=== PATIENT | female | born 1980 | race Caucasian/White ===

== ENCOUNTER 2016-11-21 08:30 | Outpatient (CLI) | payer OTHER ==
[2016-11-21 13:28] LABS: BASOPHILS # (AUTO) 0.1 10^3/uL (0.0-0.1); EOSINOPHILS # (AUTO) 0.1 10^3/uL (0.0-0.7); EOSINOPHILS % (AUTO) 1.6 %; HCT - HEMATOCRIT 42.1 % (37.0-47.0); HGB - HEMOGLOBIN 13.7 g/dL (12.0-16.0); LYMPHOCYTES % (AUTO) 21.3 %; MEAN CORPUSCULAR HEMOGLOBIN 28.3 pg (27.0-31.0); MEAN CORPUSCULAR HGB CONC 32.5 g/dL (32.0-36.0); MEAN CORPUSCULAR VOLUME 87.2 fL (81.0-99.0); MEAN PLATELET VOLUME 8.4 fL (7.9-10.8); MONOCYTES # (AUTO) 0.6 10^3/uL (0.0-1.0); MONOCYTES % (AUTO) 6.9 %; NEUTROPHILS # (AUTO) 6.5 10^3/uL (1.5-6.6); NEUTROPHILS % (AUTO) 69.2 %; RED BLOOD COUNT 4.83 10^6/uL (4.20-5.40); RED CELL DISTRIBUTION WIDTH 14.1 % (12.0-15.0); UNCORRECTED WHITE BLOOD COUNT 9.3 x10^3/uL; WHITE BLOOD COUNT 9.3 x10^3/uL (4.8-10.8)
[2016-11-21 13:31] LABS: ALBUMIN/GLOBULIN RATIO 1.5 (1.0-2.2); BILIRUBIN,TOTAL 0.6 mg/dL (0.2-1.0); BUN - BLOOD UREA NITROGEN 17 mg/dL (6-20); CALCIUM 9.1 mg/dL (8.5-10.3); CARBON DIOXIDE - CO2 28 mmol/L (21-32); CHLORIDE 104 mmol/L (101-111); CHOL/HDL RATIO 2.9 (<4.4); CHOLESTEROL 174 mg/dL; CREATININE 0.5 mg/dL (0.4-1.0); GFR - MDRD 139 (>89); GLUCOSE 76 mg/dL (70-100); HDL CHOLESTEROL 61 mg/dL; LDL/HDL RATIO 1.6 (<4.4); POTASSIUM 3.9 mmol/L (3.5-5.0); SODIUM 141 mmol/L (135-145); TOTAL PROTEIN 6.9 g/dL (6.7-8.2); TRIGLYCERIDES 82 mg/dL; VLDL CHOLESTEROL 16 mg/dL
[2016-11-21 13:41] LABS: FERRITIN 18.9 ng/mL (11.0-306.8)
[2016-11-21 13:47] LABS: FOLATE 14.16 ng/mL (5.90 - >24.8)
[2016-11-21 13:54] LABS: THYROID STIMULATING HORMONE 0.2 uIU/mL (0.34-5.60)
== END 2016-11-21 08:31 | disposition home or self-care (01) ==
LOC: LAB.WCP 08:30
PROVIDERS: ATTEND Physician Assistant Medical
DX: R79.9 Abnormal finding of blood chemistry, unspecified (principal); Z79.899 Other long term (current) drug therapy; E03.9 Hypothyroidism, unspecified; E66.01 Morbid (severe) obesity due to excess calories; E53.8 Deficiency of other specified B group vitamins; R53.83 Other fatigue
CPT/HCPCS: 36415; 80053; 80061; 82607; 82728; 82746; 84439; 84443; 85025

== ENCOUNTER 2016-12-10 07:17 | Outpatient (CLI) | payer OTHER | END 2016-12-10 07:18 | disposition home or self-care (01) | LOC: LAB.WCP 07:17 | PROVIDERS: ATTEND Physician Assistant Medical | DX: J01.90 Acute sinusitis, unspecified (principal) | CPT/HCPCS: 87640 ==

== ENCOUNTER 2017-01-07 09:08 | Outpatient (CLI) | payer OTHER | END 2017-01-07 09:09 | disposition home or self-care (01) | LOC: SC 09:08 | PROVIDERS: ATTEND Internal Medicine Pulmonary Disease | DX: G47.33 Obstructive sleep apnea (adult) (pediatric) (principal) | CPT/HCPCS: 99203; 99212 ==

== ENCOUNTER 2017-03-14 14:00 | Outpatient (CLI) | payer OTHER | END 2017-03-14 14:01 | disposition home or self-care (01) | LOC: LAB.WCP 14:00 | PROVIDERS: ATTEND Physician Assistant Medical | DX: Z20.2 Contact with and (suspected) exposure to infections with a predominantly sexual mode of transmission (principal) | CPT/HCPCS: 87491; 87591 ==

== ENCOUNTER 2017-03-14 14:13 | Outpatient (CLI) | payer OTHER | END 2017-03-14 14:14 | disposition home or self-care (01) | LOC: LAB.WCP 14:13 | PROVIDERS: ATTEND Physician Assistant Medical | DX: Z20.2 Contact with and (suspected) exposure to infections with a predominantly sexual mode of transmission (principal) | CPT/HCPCS: 36415; 87389 ==

== ENCOUNTER 2017-03-14 14:13 | Outpatient (CLI) | payer OTHER ==
[2017-03-16 12:01] LABS: TREPONEMA AB IGG NEGATIVE
[2017-03-16 21:01] LABS: TEST RESULT REPORT
== END 2017-03-14 14:14 | disposition home or self-care (01) ==
LOC: LAB.WCP 14:13
PROVIDERS: ATTEND Physician Assistant Medical
DX: Z20.2 Contact with and (suspected) exposure to infections with a predominantly sexual mode of transmission (principal)
CPT/HCPCS: 36415; 81599; 86695; 86696; 86780; 87389; 87491; 87591

== ENCOUNTER 2017-06-21 08:00 | Outpatient (CLI) | payer OTHER ==
[2017-06-21 21:03] LABS: ALBUMIN/GLOBULIN RATIO 1.3 (1.0-2.2); ALKALINE PHOSPHATASE 50 IU/L (42-121); ALT ALANINE AMINOTRANSFERASE 33 IU/L (10-60); AST ASPARTATE AMINOTRANSFERASE 19 IU/L (10-42); BILIRUBIN,TOTAL 0.3 mg/dL (0.2-1.0); BUN - BLOOD UREA NITROGEN 19 mg/dL (6-20); CALCIUM 8.9 mg/dL (8.5-10.3); CARBON DIOXIDE - CO2 27 mmol/L (21-32); CHLORIDE 104 mmol/L (101-111); CREATININE 0.7 mg/dL (0.4-1.0); GFR - MDRD 94 (>89); GLUCOSE 85 mg/dL (70-100); SODIUM 140 mmol/L (135-145); TOTAL PROTEIN 7.2 g/dL (6.7-8.2)
[2017-06-21 21:08] LABS: BASOPHILS # (AUTO) 0.1 10^3/uL (0.0-0.1); BASOPHILS % (AUTO) 0.8 %; EOSINOPHILS # (AUTO) 0.1 10^3/uL (0.0-0.7); EOSINOPHILS % (AUTO) 1.1 %; HGB - HEMOGLOBIN 13.2 g/dL (12.0-16.0); LYMPHOCYTES # (AUTO) 2.8 10^3/uL (1.5-3.5); LYMPHOCYTES % (AUTO) 22.5 %; MEAN CORPUSCULAR HEMOGLOBIN 27.7 pg (27.0-31.0); MEAN CORPUSCULAR HGB CONC 32.1 g/dL (32.0-36.0); MEAN CORPUSCULAR VOLUME 86.4 fL (81.0-99.0); MEAN PLATELET VOLUME 8.6 fL (7.9-10.8); MONOCYTES # (AUTO) 0.7 10^3/uL (0.0-1.0); MONOCYTES % (AUTO) 5.5 %; NEUTROPHILS # (AUTO) 8.7 10^3/uL (1.5-6.6); NEUTROPHILS % (AUTO) 70.1 %; PLT - PLATELET COUNT 328 10^3/uL (130-450); RED BLOOD COUNT 4.75 10^6/uL (4.20-5.40); RED CELL DISTRIBUTION WIDTH 16.3 % (12.0-15.0); WHITE BLOOD COUNT 12.4 x10^3/uL (4.8-10.8)
[2017-06-21 21:28] LABS: THYROID STIMULATING HORMONE 0.22 uIU/mL (0.34-5.60)
[2017-06-21 22:38] LABS: FREE T4 (FREE THYROXINE) 1.22 ng/dL (0.58-1.64)
== END 2017-06-21 08:01 | disposition home or self-care (01) ==
LOC: LAB.WCP 08:00
PROVIDERS: ATTEND Physician Assistant Medical
DX: R53.83 Other fatigue (principal)
CPT/HCPCS: 36415; 80053; 84439; 84443; 85025; 86665

== ENCOUNTER 2017-06-25 17:19 | Outpatient (CLI) | payer OTHER ==
[2017-06-25 17:37] LABS: HGB - HEMOGLOBIN 13.6 g/dL (12.0-16.0); MEAN CORPUSCULAR HEMOGLOBIN 27.6 pg (27.0-31.0); MEAN CORPUSCULAR VOLUME 86.4 fL (81.0-99.0); MEAN PLATELET VOLUME 7.7 fL (7.9-10.8); RED BLOOD COUNT 4.91 10^6/uL (4.20-5.40); RED CELL DISTRIBUTION WIDTH 16.2 % (12.0-15.0); WHITE BLOOD COUNT 10.4 x10^3/uL (4.8-10.8)
== END 2017-06-25 17:20 | disposition home or self-care (01) ==
LOC: LAB 17:19
PROVIDERS: ATTEND Physician Assistant Medical
DX: J06.9 Acute upper respiratory infection, unspecified (principal)
CPT/HCPCS: 36415; 85379

== ENCOUNTER 2017-07-02 12:17 | Outpatient (CLI) | payer OTHER | END 2017-07-02 12:18 | disposition home or self-care (01) | LOC: LAB.WCP 12:17 | PROVIDERS: ATTEND Physician Assistant Medical | DX: R31.9 Hematuria, unspecified (principal) | CPT/HCPCS: 87086 ==

== ENCOUNTER 2017-07-11 09:34 | Outpatient (CLI) | payer OTHER ==
[2017-07-11 10:21] LABS: BASOPHILS # (AUTO) 0.1 10^3/uL (0.0-0.1); BASOPHILS % (AUTO) 0.9 %; EOSINOPHILS # (AUTO) 0.3 10^3/uL (0.0-0.7); EOSINOPHILS % (AUTO) 2.1 %; HGB - HEMOGLOBIN 13.7 g/dL (12.0-16.0); LYMPHOCYTES # (AUTO) 4.1 10^3/uL (1.5-3.5); LYMPHOCYTES % (AUTO) 30.1 %; MEAN CORPUSCULAR HEMOGLOBIN 28.2 pg (27.0-31.0); MEAN CORPUSCULAR HGB CONC 32.7 g/dL (32.0-36.0); MEAN CORPUSCULAR VOLUME 86.1 fL (81.0-99.0); MEAN PLATELET VOLUME 7.6 fL (7.9-10.8); MONOCYTES # (AUTO) 0.9 10^3/uL (0.0-1.0); MONOCYTES % (AUTO) 6.7 %; NEUTROPHILS # (AUTO) 8.1 10^3/uL (1.5-6.6); NEUTROPHILS % (AUTO) 60.2 %; PLT - PLATELET COUNT 312 10^3/uL (130-450); RED BLOOD COUNT 4.85 10^6/uL (4.20-5.40); RED CELL DISTRIBUTION WIDTH 16.5 % (12.0-15.0); WHITE BLOOD COUNT 13.5 x10^3/uL (4.8-10.8)
[2017-07-11 10:24] LABS: GLUCOSE, URINE (UA) NEGATIVE (NEGATIVE); KETONES,URINE (UA) NEGATIVE (NEGATIVE); LEUKOCYTE ESTERASE, URINE NEGATIVE (NEGATIVE); NITRITE,URINE NEGATIVE (NEGATIVE); OCCULT BLOOD,URINE TRACE-LYSE (NEGATIVE); PROTEIN,URINE NEGATIVE (NEGATIVE); UROBILINOGEN,URINE 0.2 (NORMAL) E.U./dL (NORMAL)
[2017-07-11 10:36] LABS: ALBUMIN/GLOBULIN RATIO 1.3 (1.0-2.2); BILIRUBIN,TOTAL 0.3 mg/dL (0.2-1.0); CALCIUM 8.9 mg/dL (8.5-10.3); CREATININE 0.9 mg/dL (0.4-1.0)
[2017-07-11 10:56] LABS: BACTERIA,URINE Moderate /HPF (None Seen); BILIRUBIN,URINE NEGATIVE (NEGATIVE); CLARITY,URINE CLEAR (CLEAR); ICTOTEST,URINE NEGATIVE; MUCUS,URINE Marked Strands; RBC,URINE 0-5 /HPF (0-5); SQUAMOUS EPITHELIAL CELL,UR FEW Squamous (<= Few)
[2017-07-13 18:56] LABS: 18 KD (IGG) BAND NON-REACTIVE; 23 KD (IGG) BAND NON-REACTIVE; 23 KD (IGM) BLOT NON-REACTIVE; 28 KD (IGG) BAND NON-REACTIVE; 30 KD (IGG) BAND REACTIVE; 39 KD (IGG) BAND NON-REACTIVE; 39 KD (IGM) BLOT NON-REACTIVE; 41 KD (IGG) BAND REACTIVE; 41 KD (IGM) BLOT REACTIVE; 45 KD (IGG) BAND NON-REACTIVE; 58 KD (IGG) BAND REACTIVE; 66 KD (IGG) BAND REACTIVE; 93 KD (IGG) BAND REACTIVE
[2017-07-15 16:11] LABS: METHYLMALONIC ACID 321 nmol/L (87-318)
== END 2017-07-11 09:35 | disposition home or self-care (01) ==
LOC: LAB 09:34
PROVIDERS: ATTEND Physician Assistant Medical
DX: R53.83 Other fatigue (principal); R50.9 Fever, unspecified; R31.9 Hematuria, unspecified
CPT/HCPCS: 36415; 80053; 81001; 81599; 82306; 82607; 83921; 83970; 85025; 85651; 86376; 86617; 86635; 86666; 86757; 87040; 87086

== ENCOUNTER 2017-07-16 11:56 | Outpatient (CLI) | payer OTHER ==
[2017-07-18 18:07] LABS: 18 KD (IGG) BAND NON-REACTIVE; 23 KD (IGG) BAND NON-REACTIVE; 23 KD (IGM) BLOT NON-REACTIVE; 28 KD (IGG) BAND NON-REACTIVE; 30 KD (IGG) BAND REACTIVE; 39 KD (IGG) BAND NON-REACTIVE; 39 KD (IGM) BLOT NON-REACTIVE; 41 KD (IGG) BAND REACTIVE; 41 KD (IGM) BLOT REACTIVE; 45 KD (IGG) BAND NON-REACTIVE; 58 KD (IGG) BAND NON-REACTIVE; 66 KD (IGG) BAND REACTIVE; 93 KD (IGG) BAND REACTIVE
== END 2017-07-16 11:57 | disposition home or self-care (01) ==
LOC: LAB.WCP 11:56
PROVIDERS: ATTEND Physician Assistant Medical
DX: R29.90 Unspecified symptoms and signs involving the nervous system (principal); A69.20 Lyme disease, unspecified
CPT/HCPCS: 36415; 81599; 86592; 86617

== ENCOUNTER 2017-07-17 12:28 | Outpatient (CLI) | payer OTHER ==
[~2017-07-17 12:28] MED LIST: GADOBUTROL 10 MMOL/10 ML VIAL ONE
[2017-07-17] MEDS ORDERED: GADOBUTROL 10 MMOL/10 ML VIAL IVP ONE (14:49)
--- NOTE | 2017-07-17 15:21 | MRI Preliminary Report ---
Exam: MRI BRAIN W/WO impression: 1. A small T2 hyperintense focus is identified in the right frontal white matter as described. The et iology is uncertain. Differential diagnostic considerations would include virtually the entire gamut white matter disease. However, the clinical significance is doubtful. 2. There is a roughly 3 x 5 x 4 mm, nonenhancing lesion in the posterior aspect of the pituitary as d escribed. This certainly could represent a pituitary microadenoma. Recommend clinical correlation for possible endocrinopathy. 3. Imaging of the brain is otherwise unremarkable. No evidence of infarction, hemorrhage, space-occup tashia mass lesion or other significant intracranial abnormality. SITE ID: [id number]
--- NOTE | 2017-07-17 16:28 | MRI Report ---
MRI BRAIN WITHOUT AND WITH CONTRAST INDICATION: 36-year-old female with history of Lyme disease for unknown number of years. The patient has decreased concentration, decreased sensation in left side of body and some left leg limp. Please assess. TECHNIQUE: 1. T1 sagittal. 2. Coronal fat saturated T2. 3. Axial T1 MP RAGE, FLAIR, T2, T2*and DWI. 4. 10 mL IV Gadavist. T1 3-D axial sequence with sagittal and coronal reformations. COMPARISON: None. FINDINGS: The patient had difficulty holding still for this examination. There is some image degradation second destiney to patient motion. Ventricular size is normal. A roughly 2 mm diameter, rounded T2 hyperintense focus is identified, in the subcortical white matter of the mesial, anterior right frontal lobe. Signal intensity of cortex and white matter is otherwise normal. Flow voids are demonstrated in the main intracranial arteries. No abnormal diffusion restriction is d emonstrated. No evidence of acute or chronic hemorrhage on T2*GRE sequence. No enhancing space-occupying mass lesion is demonstrated. No pathologic meningeal or cranial nerve en hancement is identified. There is normal intravascular contrast enhancement in the dural venous sinus es and deep venous structures. A detailed study of the pituitary gland has not been performed. The sella is not abnormally enlarged. The pituitary gland is prominent and demonstrates central upward convexity. It measures up to about 8 mm in maximal height. These findings are considered within normal limits for a female patient of ch ildbearing age. There is a focal area of non-enhancement in the posterior aspect of the pituitary, pr obably just anterior to the neurohypophysis. It measures close to 3 mm maximal AP by 5 mm maximal tra nsverse by close to 4 mm maximal craniocaudad. No corresponding T2 hyperintensity is demonstrated, to suggest this represents an intrapituitary cyst. This certainly could represent a microadenoma. The p ituitary is otherwise unremarkable. No suprasellar mass is demonstrated. The optic chiasm is normal a nd noncompressed. Limited evaluation of the orbits reveals no gross pathology. Mucosal thickening is identified scattered throughout the ethmoid air cells and in the left chamber o f the sphenoid sinus. The paranasal sinuses are otherwise clear. No mastoid or middle ear effusion is demonstrated. The marrow signal intensity in the regional skeletal structures is unremarkable. Noted is mild prominence of the posterior nasopharyngeal soft tissues, consistent with benign adenoid al hyperplasia. IMPRESSION: 1. A small T2 hyperintense focus is identified in the right frontal white matter as described. The et iology is uncertain. Differential diagnostic considerations would include virtually the entire gamut of white matter disease. However, the clinical significance is doubtful. 2. There is a roughly 3 x 5 x 4 mm, nonenhancing lesion in the posterior aspect of the pituitary as d escribed. This certainly could represent a pituitary microadenoma. Recommend clinical correlation for possible endocrinopathy. 3. Imaging of the brain is otherwise unremarkable. No evidence of infarction, hemorrhage, space-occup tashia mass lesion or other significant intracranial abnormality. Referring Provider Line: [phone] SITE ID: [id number]
== END 2017-07-17 12:29 | disposition home or self-care (01) ==
LOC: DI 12:28
PROVIDERS: ATTEND Physician Assistant Medical
DX: R29.90 Unspecified symptoms and signs involving the nervous system (principal); E23.6 Other disorders of pituitary gland
CPT/HCPCS: 70553; A9585

== ENCOUNTER 2017-07-24 11:20 | Outpatient (CLI) | payer OTHER ==
[2017-07-24 18:53] LABS: BASOPHILS # (AUTO) 0.1 10^3/uL (0.0-0.1); BASOPHILS % (AUTO) 0.8 %; EOSINOPHILS # (AUTO) 0.1 10^3/uL (0.0-0.7); EOSINOPHILS % (AUTO) 1.2 %; HGB - HEMOGLOBIN 12.8 g/dL (12.0-16.0); LYMPHOCYTES # (AUTO) 2.8 10^3/uL (1.5-3.5); LYMPHOCYTES % (AUTO) 26.3 %; MEAN CORPUSCULAR HEMOGLOBIN 27.7 pg (27.0-31.0); MEAN CORPUSCULAR HGB CONC 31.7 g/dL (32.0-36.0); MEAN CORPUSCULAR VOLUME 87.4 fL (81.0-99.0); MONOCYTES # (AUTO) 0.6 10^3/uL (0.0-1.0); MONOCYTES % (AUTO) 6.1 %; NEUTROPHILS # (AUTO) 6.9 10^3/uL (1.5-6.6); NEUTROPHILS % (AUTO) 65.6 %; PLT - PLATELET COUNT 318 10^3/uL (130-450); RED BLOOD COUNT 4.63 10^6/uL (4.20-5.40); RED CELL DISTRIBUTION WIDTH 16.3 % (12.0-15.0); WHITE BLOOD COUNT 10.5 x10^3/uL (4.8-10.8)
[2017-07-24 19:07] LABS: INR 0.9 (0.8-1.2); PT - PROTHROMBIN TIME 10.2 secs (9.9-12.6)
== END 2017-07-24 11:21 | disposition home or self-care (01) ==
LOC: LAB.WCP 11:20
PROVIDERS: ATTEND Physician Assistant Medical
DX: R20.9 Unspecified disturbances of skin sensation (principal)
CPT/HCPCS: 36415; 85025; 85610; 85730

== ENCOUNTER 2017-07-29 11:04 | Emergency (ER) | payer OTHER ==
--- NOTE | 2017-07-29 12:23 | ED Physician Documentation ---
PD HPI HEADACHE - Stated complaint Stated Complaint: HEADACHE W/FEVER - Chief complaint Chief Complaint: Neuro - History obtained from History obtained from: Patient - History of Present Illness Timing - onset: How many days ago (4) Timing - duration: Days (4) Timing - details: Abrupt onset (she had LP 4 days ago in evaluation of possible Lyme disease, and developed headache later in the day, worse the foloowing day and is persistent. Severe when sits up or stands. Not having light sensitive or noise problems such as when she gets migraines. No neck stiffness. [place] chilled/ sweaty couple of times but not fever per se.) Worst headache ever?: Worst headache ever? Location: Global Quality: Throbbing, Like head is exploding (when she sits or stands) Associated symptoms: Nausea. No: Fever, Stiff neck, Weakness, Numbness, Eye pain, Vision changes Improved by: Rest. No: Dark room, Quiet, Meds Worsened by: No: Light, Noise Contributing factors: Other (LP done 4 days ago). No: Recent illness, Trauma Similar symptoms before: Has not had sx before (has had migraines in the past, severe at times, but says character of this is different.) Recently seen: Clinic (LP done for testing of Lme disease with various musculoskeletal and nuerologic symptoms recently. Had LP and developed headache Saturday which has worsened and persisted.) Review of Systems Constitutional: reports: Myalgias (for 2-3 months, promptly eval for infections/ rheumatologic issues. Had Dx of Lyme by blood tests.). denies: Fever, Chills Nose: denies: Rhinorrhea / runny nose, Congestion Throat: denies: Sore throat Cardiac: denies: Chest pain / pressure Respiratory: denies: Dyspnea, Cough GI: reports: Nausea, Vomiting. denies: Abdominal Pain, Diarrhea : denies: Dysuria, Frequency Skin: denies: Rash, Lesions Musculoskeletal: reports: Back pain (mild sore at LP site for few days). denies : Neck pain Neurologic: reports: Generalized weakness. denies: Focal weakness, Numbness, Syncope, Altered mental status PD PAST MEDICAL HISTORY - Past Medical History Cardiovascular: None Respiratory: None Endocrine/Autoimmune: None Other Past Medical History: Lymes Disease - Past Surgical History Past Surgical History: Yes General: Cholecystectomy - Present Medications Home Medications: Ambulatory Orders Medication Instructions Recorded Confirmed Levothyroxine [Synthroid] 200 mcg PO DAILY 04/13/15 04/13/15 Promethazine [Phenergan] 25 - 50 mg PO Q6H PRN #15 tab 09/29/15 Butalb/Acetaminophen/Caffeine 1 each PO Q6H PRN #20 capsule 07/29/17 [Fioricet 50-300-40 mg Capsule] Dexamethasone [Decadron] 4 mg PO DAILY #5 tablet 07/29/17 HYDROcod/ACETAM 5/325 [[place] 5/325] 1 tab PO Q6H PRN #15 tablet 07/29/17 Promethazine [Phenergan] 25 - 50 mg PO Q6H PRN #30 tab 07/29/17 - Allergies Allergies/Adverse Reactions: Allergies Allergy/AdvReac Type Severity Reaction Status Date / Time ondansetron Allergy Emesis Verified 09/29/15 16:52 - Social History Does the pt smoke?: Yes Smoking Status: Current every day smoker Does the pt drink ETOH?: No Does the pt have substance abuse?: No - Immunizations Immunizations are current?: Yes PD ED PE NORMAL - Vitals Vital signs reviewed: Yes - General General: Alert and oriented X 3, Well developed/nourished, Other (appears uncomfortable with headache. ) - HEENT HEENT: Atraumatic, PERRL, EOMI, Ears normal, Pharynx benign - Neck Neck: Supple, no meningeal sign, No bony TTP, No adenopathy - Cardiac Cardiac: RRR, No murmur - Respiratory Respiratory: Clear bilaterally - Abdomen Abdomen: Soft, Non tender - Derm Derm: Normal color, Warm and dry, No rash, Other (LP site low back without any redness, swelling, warmth. ) - Extremities Extremities: No tenderness to palpate, Normal ROM s pain - Neuro Neuro: Alert and oriented X 3, No motor deficit, No sensory deficit, Normal speech Results - Vitals Vitals: Vital Signs - 24 hr 07/29/17 07/29/17 07/29/17 11:21 13:05 14:01 Temperature 36.4 C L 37.1 C Heart Rate 64 55 L 51 L Respiratory 20 16 18 Rate Blood Pressure 116/69 114/66 115/65 O2 Saturation 100 100 100 Oxygen O2 Source Room air - Labs Labs: Laboratory Tests 07/29/17 07/29/17 12:00 12:00 WBC 8.4 RBC 4.51 Hgb 12.7 Hct 38.7 MCV 85.9 MCH 28.3 MCHC 32.9 RDW 15.5 H Plt Count 281 MPV 7.7 L Neut # 5.4 Lymph # 2.2 [place] # 0.6 Eos # 0.1 Baso # 0.1 Absolute Nucleated RBC 0.01 Nucleated RBC % 0.1 Sodium 140 Potassium 4.0 Chloride 107 Carbon Dioxide 28 Anion Gap 5.0 L BUN 17 Creatinine 0.7 Estimated GFR (MDRD) 94 Glucose 75 Calcium 8.7 Total Bilirubin 0.3 AST 19 ALT 19 Alkaline Phosphatase 48 Total Protein 7.0 Albumin 3.7 Globulin 3.3 Albumin/Globulin Ratio 1.1 Lipase 19 L PD MEDICAL DECISION MAKING - ED course Complexity details: re-evaluated patient (improved with IV fluids and meds. Does not seem meningitic and LP site without redness. ), considered differential (no fever here and not really one over past few days. She felt sweaty at times per patient. Having post LP headache mainly along with likely mgiraine as well. ), d/w patient Departure - Departure Disposition: 01 Home, Self Care Clinical Impression: Post lumbar puncture headache Condition: Stable Record reviewed to determine appropriate education?: Yes Instructions: ED Cephalgia Unspecified Follow-Up: Raysa Jones PA-C [Primary Care Provider] - Prescriptions: Butalb/Acetaminophen/Caffeine [Fioricet 50-300-40 mg Capsule] 1 each PO Q6H PRN #20 capsule PRN Reason: Headache Dexamethasone [Decadron] 4 mg PO DAILY #5 tablet HYDROcod/ACETAM 5/325 [[place] 5/325] 1 tab PO Q6H PRN #15 tablet PRN Reason: Pain Promethazine [Phenergan] 25 - 50 mg PO Q6H PRN #30 tab PRN Reason: Nausea / Vomiting Comments: Drink lots of fluids. Light activity today and tomorrow. Use promethazine every 6 hours if needed for any persistent nausea. This could also be used in conjunction with ibuprofen or Tylenol for migraine headache as well. For subsequent migraines, you could use promethazine with Fioricet as a migraine combination and add hydrocodone if needed without relief from those. Follow-up with your primary care regarding ongoing evaluation of your musculoskeletal and neurologic symptoms. Decadron for 5 more days to help keep the current headache tapering down. Discharge Date/Time: 07/29/17 15:47
[2017-07-29] MEDS ORDERED: SODIUM CHLORIDE 0.9% 1,000 ML IV ONE ×3 (12:45→13:56)
[2017-07-29] MEDS ORDERED: DEXAMETHASONE 10 MG/ML VIAL IVP STA (12:45)
[2017-07-29] MEDS ORDERED: METOCLOPRAMIDE 10 MG/2 ML VIAL IVP STA ×2 (12:45→13:57)
[2017-07-29] MEDS ORDERED: KETOROLAC 60 MG/2 ML VIAL IVP STA (12:45)
[2017-07-29] MEDS ORDERED: diphenhydrAMINE INJ 50 MG/ML VIAL IVP STA (12:45)
[2017-07-29] MEDS ORDERED: HYDROmorphone 1 MG/ML SYRINGE IVP STA ×2 (12:45→13:56)
[2017-07-29 13:09] LABS: BASOPHILS # (AUTO) 0.1 10^3/uL (0.0-0.1); BASOPHILS % (AUTO) 0.7 %; EOSINOPHILS # (AUTO) 0.1 10^3/uL (0.0-0.7); EOSINOPHILS % (AUTO) 1.5 %; HGB - HEMOGLOBIN 12.7 g/dL (12.0-16.0); LYMPHOCYTES # (AUTO) 2.2 10^3/uL (1.5-3.5); LYMPHOCYTES % (AUTO) 26.2 %; MEAN CORPUSCULAR HEMOGLOBIN 28.3 pg (27.0-31.0); MEAN CORPUSCULAR HGB CONC 32.9 g/dL (32.0-36.0); MEAN CORPUSCULAR VOLUME 85.9 fL (81.0-99.0); MEAN PLATELET VOLUME 7.7 fL (7.9-10.8); MONOCYTES # (AUTO) 0.6 10^3/uL (0.0-1.0); NEUTROPHILS # (AUTO) 5.4 10^3/uL (1.5-6.6); NEUTROPHILS % (AUTO) 64.6 %; PLT - PLATELET COUNT 281 10^3/uL (130-450); RED BLOOD COUNT 4.51 10^6/uL (4.20-5.40); RED CELL DISTRIBUTION WIDTH 15.5 % (12.0-15.0); WHITE BLOOD COUNT 8.4 x10^3/uL (4.8-10.8)
[2017-07-29 13:10] LABS: ALBUMIN 3.7 g/dL (3.2-5.5); ALBUMIN/GLOBULIN RATIO 1.1 (1.0-2.2); BILIRUBIN,TOTAL 0.3 mg/dL (0.2-1.0); CALCIUM 8.7 mg/dL (8.5-10.3); CREATININE 0.7 mg/dL (0.4-1.0)
[2017-07-29 14:02] VITALS: BP 115/65
== END 2017-07-29 15:47 | disposition home or self-care (01) ==
LOC: ED 11:04
DX: G97.1 Other reaction to spinal and lumbar puncture (principal); F17.200 Nicotine dependence, unspecified, uncomplicated
CPT/HCPCS: 36415; 80053; 83690; 85025; 96361; 96374; 96375; 96376; 99283; 99284; J1170; J1200; J2765

== ENCOUNTER 2017-09-16 09:38 | Outpatient (CLI) | payer OTHER ==
[~2017-09-16 09:38] MED LIST changes: +GADOBUTROL 10 MMOL/10 ML SYRINGE ONE; -GADOBUTROL 10 MMOL/10 ML VIAL ONE
[2017-09-16] MEDS: GADOBUTROL 10 MMOL/10 ML SYRINGE IVP ONE (10:29)
--- NOTE | 2017-09-16 15:42 | MRI Report ---
EXAM: MRI THORACIC SPINE WITHOUT AND WITH CONTRAST EXAM DATE: 09/16/2017 10:37 AM. CLINICAL HISTORY: LEft-sided weakness, neurologic abnormality. COMPARISONS: None. TECHNIQUE: Multiplanar, multisequence T1-weighted and fluid-sensitive sequences of the thoracic spine from C7 to L1 before and after administration of intravenous contrast. Other: None. IV contrast: 10 mL Gadavist. FINDINGS: Spinal Cord: No signal abnormality in the visualized spinal cord. Alignment: No scoliosis or spondylolisthesis. Bone Marrow: No gross fractures or bone lesion. No bone marrow edema or abnormal enhancement. Disk Levels/Facets: C7-T1: Unremarkable. T1-T2: Unremarkable. T2-T3: Unremarkable. T3-T4: Unremarkable. T4-T5: Unremarkable. T5-T6: Unremarkable. T6-T7: Unremarkable. T7-T8: Unremarkable. T8-T9: Small posterior left paracentral disk protrusion. Minimal left-sided canal narrowing. No toyin inal stenoses. T9-T10: Small posterior disk bulge. Mild canal stenosis. No foraminal stenoses. Mild facet arthropath y. T10-T11: Unremarkable. T11-T12: Unremarkable. T12-L1: Unremarkable. Spinal Canal: No enhancing masses within the spinal canal. No epidural abscess. Musculature: Normal. No edema, enhancement, or fatty atrophy. Other: The visualized lungs, mediastinum, and abdominal cavity are unremarkable. IMPRESSION: 1. Small posterior left paracentral disk protrusion at T8-T9 which causes minimal left-sided canal na rrowing. 2. Small posterior disk bulge at T9-T10 which causes mild canal stenosis. 3. No thoracic cord lesions or spinal canal masses are seen. [facility] Referring Provider Line: [phone] SITE ID: [id number]
== END 2017-09-16 09:39 | disposition home or self-care (01) ==
LOC: DI 09:38
PROVIDERS: ATTEND Physician Assistant
DX: M51.24 Other intervertebral disc displacement, thoracic region (principal); R53.1 Weakness; R29.818 Other symptoms and signs involving the nervous system
CPT/HCPCS: 72157; A9585

== ENCOUNTER 2018-02-18 20:30 | Emergency (ER) | payer OTHER ==
--- NOTE | 2018-02-18 22:53 | ED Physician Documentation ---
History of Present Illness - Stated complaint Stated Complaint: RASH/NAUSEA - Chief complaint Chief Complaint: Wound - History obtained from History obtained from: Patient - History of Present Illness Timing: How many weeks ago (2-3) Improved by: nothing Worsened by: no exacerbating factors - Additonal information Additional information: c/o few weeks of fever Tmax 101, rash across lower back, fatigue, difficulty concentrating thoughts, headaches. 2-3 days of nausea and developed abdominal pain earlier today. she has had similar symptoms, episodically, for over a year and has undergone many tests including LP and brain MRI. she was T+R from this ED July 2017 for headache, had undergone LP 4 days earlier (part of w/u for Lyme disease), ans she says she went to [facility] ED 3 days later. MRI brain June 2017, findings included (per radiologists read) white matter hyperintense focus that had differential that would include virtually the entire gamut of white matter disease but doubtful clinical significance, as well as findings s/o pituitary microadenoma. Patient has not had a diagnosis thus far for her symptoms. underwent physical therapy yesterday Review of Systems Constitutional: reports: Fever, Fatigue Eyes: reports: Reviewed and negative Cardiac: reports: Reviewed and negative Respiratory: reports: Reviewed and negative GI: reports: Abdominal Pain, Nausea. denies: Vomiting, Constipation, Diarrhea : denies: Unable to Void, Incontinent, Now EGA Skin: reports: Rash Neurologic: reports: Headache. denies: Focal weakness, Numbness PD PAST MEDICAL HISTORY - Past Medical History Past Medical History: No Cardiovascular: None Respiratory: None Endocrine/Autoimmune: None - Past Surgical History Past Surgical History: Yes General: Cholecystectomy - Present Medications Home Medications: Ambulatory Orders Medication Instructions Recorded Confirmed Levothyroxine [Synthroid] 200 mcg PO DAILY 04/13/15 04/13/15 Promethazine [Phenergan] 25 - 50 mg PO Q6H PRN #15 tab 09/29/15 Butalb/Acetaminophen/Caffeine 1 each PO Q6H PRN #20 capsule 07/29/17 [Fioricet 50-300-40 mg Capsule] Dexamethasone [Decadron] 4 mg PO DAILY #5 tablet 07/29/17 HYDROcod/ACETAM 5/325 [[place] 5/325] 1 tab PO Q6H PRN #15 tablet 03/05/18 Promethazine [Phenergan] 25 - 50 mg PO Q6H PRN #30 tab 07/29/17 - Allergies Allergies/Adverse Reactions: Allergies Allergy/AdvReac Type Severity Reaction Status Date / Time ondansetron Allergy Emesis Verified 02/18/18 20:42 - Social History Does the pt smoke?: Yes Smoking Status: Current every day smoker Does the pt drink ETOH?: No Does the pt have substance abuse?: No - Immunizations Immunizations are current?: Yes - POLST Patient has POLST: No PD ED PE NORMAL - Vitals Vital signs reviewed: Yes - General General: Alert and oriented X 3, No acute distress, Well developed/nourished - HEENT HEENT: PERRL, EOMI, Moist mucous membranes - Neck Neck: Supple, no meningeal sign - Cardiac Cardiac: RRR, No murmur - Respiratory Respiratory: No respiratory distress, Clear bilaterally - Abdomen Abdomen: Soft, Non tender, Non distended - Derm Derm: Normal color, Warm and dry - Extremities Extremities: No edema - Neuro Neuro: Alert and oriented X 3, furnace erector 2-12 intact, No motor deficit, No sensory deficit, Normal speech PD ED PE EXPANDED - Derm Derm: Other (faint erythematous exanthem across lower back, maculopapular ) Results - Vitals Vitals: Oxygen O2 Source Room air - Labs Labs: Laboratory Tests 02/18/18 02/18/18 02/18/18 23:35 23:35 23:35 WBC 14.4 H RBC 4.75 Hgb 13.6 Hct 41.7 MCV 87.8 MCH 28.7 MCHC 32.7 RDW 14.7 Plt Count 257 MPV 7.9 Neut # (Auto) 9.3 H Lymph # (Auto) 3.9 H [place] # (Auto) 0.8 Eos # (Auto) 0.3 Baso # (Auto) 0.1 Absolute Nucleated RBC 0.00 Nucleated RBC % 0.0 ESR 1 Sodium 138 Potassium 3.8 Chloride 103 Carbon Dioxide 27 Anion Gap 8.0 BUN 13 Creatinine 0.8 Estimated GFR (MDRD) 80 L Glucose 85 Calcium 9.1 Total Bilirubin 0.7 AST 16 ALT 16 Alkaline Phosphatase 60 C-Reactive Protein Total Protein 7.2 Albumin 4.4 Globulin 2.8 Albumin/Globulin Ratio 1.6 Lipase 31 TSH Free T4 T3 Uptake Urine Color Urine Clarity Urine pH Ur Specific [place] Urine Protein Urine Glucose (UA) Urine Ketones Urine Occult Blood Urine Nitrite Urine Bilirubin Urine Urobilinogen Ur Leukocyte Esterase Ur Microscopic Review Urine Culture Comments 02/18/18 02/18/18 02/18/18 23:35 23:35 23:35 WBC RBC Hgb Hct MCV MCH MCHC RDW Plt Count MPV Neut # (Auto) Lymph # (Auto) [place] # (Auto) Eos # (Auto) Baso # (Auto) Absolute Nucleated RBC Nucleated RBC % ESR Sodium Potassium Chloride Carbon Dioxide Anion Gap BUN Creatinine Estimated GFR (MDRD) Glucose Calcium Total Bilirubin AST ALT Alkaline Phosphatase C-Reactive Protein < 1.0 Total Protein Albumin Globulin Albumin/Globulin Ratio Lipase TSH 18.05 H Free T4 0.62 T3 Uptake 37.0 Urine Color Urine Clarity Urine pH Ur Specific [place] Urine Protein Urine Glucose (UA) Urine Ketones Urine Occult Blood Urine Nitrite Urine Bilirubin Urine Urobilinogen Ur Leukocyte Esterase Ur Microscopic Review Urine Culture Comments 02/18/18 23:40 WBC RBC Hgb Hct MCV MCH MCHC RDW Plt Count MPV Neut # (Auto) Lymph # (Auto) [place] # (Auto) Eos # (Auto) Baso # (Auto) Absolute Nucleated RBC Nucleated RBC % ESR Sodium Potassium Chloride Carbon Dioxide Anion Gap BUN Creatinine Estimated GFR (MDRD) Glucose Calcium Total Bilirubin AST ALT Alkaline Phosphatase C-Reactive Protein Total Protein Albumin Globulin Albumin/Globulin Ratio Lipase TSH Free T4 T3 Uptake Urine Color YELLOW Urine Clarity CLEAR Urine pH 6.0 Ur Specific [place] >=1.030 H Urine Protein NEGATIVE Urine Glucose (UA) NEGATIVE Urine Ketones TRACE Urine Occult Blood NEGATIVE Urine Nitrite NEGATIVE Urine Bilirubin NEGATIVE Urine Urobilinogen 0.2 (NORMAL) Ur Leukocyte Esterase NEGATIVE Ur Microscopic Review NOT INDICATED Urine Culture Comments NOT INDICATED PD MEDICAL DECISION MAKING - ED course Complexity details: reviewed results, re-evaluated patient, considered d ifferential, d/w patient ED course: mild leukocytosis and elevated TSH (but normal free T4 and T3 uptake; patient takes levoxyl). otherwise unremarkable and reassuring blood tests tonight including CRP and ESR. nausea controlled with phenergan (has zofran at home). further emergent testing unlikely to yield diagnosis or suggest treatment at this time. encouraged to return if worse, and f/u with PMD - Sepsis Event Vital Signs: Oxygen O2 Source Room air Departure - Departure Disposition: Home, Self Care Clinical Impression: Fever Qualifiers: Fever type: unspecified Qualified Code(s): R50.9 - Fever, unspecified Condition: Good Instructions: ED Fever Unconf Cause Follow-Up: Raysa Jones PA-C [Primary Care Provider] - Discharge Date/Time: 02/19/18 01:09
[2018-02-18] MEDS ORDERED: PROMETHAZINE 25 MG TABLET PO STA (23:25)
[2018-02-18 23:46] LABS: BASOPHILS # (AUTO) 0.1 10^3/uL (0.0-0.1); BASOPHILS % (AUTO) 0.8 %; EOSINOPHILS # (AUTO) 0.3 10^3/uL (0.0-0.7); EOSINOPHILS % (AUTO) 2.3 %; HGB - HEMOGLOBIN 13.6 g/dL (12.0-16.0); LYMPHOCYTES # (AUTO) 3.9 10^3/uL (1.5-3.5); LYMPHOCYTES % (AUTO) 27.1 %; MEAN CORPUSCULAR HEMOGLOBIN 28.7 pg (27.0-31.0); MEAN CORPUSCULAR HGB CONC 32.7 g/dL (32.0-36.0); MEAN CORPUSCULAR VOLUME 87.8 fL (81.0-99.0); MEAN PLATELET VOLUME 7.9 fL (7.9-10.8); MONOCYTES # (AUTO) 0.8 10^3/uL (0.0-1.0); MONOCYTES % (AUTO) 5.4 %; NEUTROPHILS # (AUTO) 9.3 10^3/uL (1.5-6.6); NEUTROPHILS % (AUTO) 64.4 %; PLT - PLATELET COUNT 257 10^3/uL (130-450); RED BLOOD COUNT 4.75 10^6/uL (4.20-5.40); RED CELL DISTRIBUTION WIDTH 14.7 % (12.0-15.0); WHITE BLOOD COUNT 14.4 x10^3/uL (4.8-10.8)
[2018-02-18 23:56] LABS: BILIRUBIN,URINE NEGATIVE (NEGATIVE); GLUCOSE, URINE (UA) NEGATIVE (NEGATIVE); KETONES,URINE (UA) TRACE mg/dL (NEGATIVE); LEUKOCYTE ESTERASE, URINE NEGATIVE (NEGATIVE); NITRITE,URINE NEGATIVE (NEGATIVE); OCCULT BLOOD,URINE NEGATIVE (NEGATIVE); PROTEIN,URINE NEGATIVE (NEGATIVE); UROBILINOGEN,URINE 0.2 (NORMAL) E.U./dL (NORMAL)
[2018-02-19 00:01] LABS: CLARITY,URINE CLEAR (CLEAR)
[2018-02-19 00:03] LABS: ALBUMIN 4.4 g/dL (3.2-5.5); ALBUMIN/GLOBULIN RATIO 1.6 (1.0-2.2); BILIRUBIN,TOTAL 0.7 mg/dL (0.2-1.0); CALCIUM 9.1 mg/dL (8.5-10.3); CREATININE 0.8 mg/dL (0.4-1.0); TOTAL PROTEIN 7.2 g/dL (6.7-8.2)
[2018-02-19 00:11] VITALS: BP 114/58
[2018-02-19 01:34] LABS: FREE T4 (FREE THYROXINE) 0.62 ng/dL (0.58-1.64)
== END 2018-02-19 01:09 | disposition home or self-care (01) ==
LOC: ED 20:30
DX: R50.9 Fever, unspecified (principal); F17.200 Nicotine dependence, unspecified, uncomplicated
CPT/HCPCS: 36415; 80053; 81003; 83690; 84439; 84443; 84479; 85025; 85651; 86140; 99282; 99283; Q0169; 81001; 87086

== ENCOUNTER 2018-03-03 09:41 | Outpatient (CLI) | payer MEDICAID ==
[2018-03-03 13:00] LABS: BASOPHILS # (AUTO) 0.1 10^3/uL (0.0-0.1); BASOPHILS % (AUTO) 0.8 %; EOSINOPHILS # (AUTO) 0.1 10^3/uL (0.0-0.7); EOSINOPHILS % (AUTO) 1.4 %; HGB - HEMOGLOBIN 14.3 g/dL (12.0-16.0); LYMPHOCYTES # (AUTO) 1.5 10^3/uL (1.5-3.5); LYMPHOCYTES % (AUTO) 15.8 %; MEAN CORPUSCULAR HEMOGLOBIN 29.4 pg (27.0-31.0); MEAN CORPUSCULAR HGB CONC 33.5 g/dL (32.0-36.0); MEAN CORPUSCULAR VOLUME 87.6 fL (81.0-99.0); MEAN PLATELET VOLUME 8.4 fL (7.9-10.8); MONOCYTES # (AUTO) 0.9 10^3/uL (0.0-1.0); MONOCYTES % (AUTO) 9.3 %; NEUTROPHILS # (AUTO) 7.1 10^3/uL (1.5-6.6); NEUTROPHILS % (AUTO) 72.7 %; PLT - PLATELET COUNT 311 10^3/uL (130-450); RED BLOOD COUNT 4.86 10^6/uL (4.20-5.40); RED CELL DISTRIBUTION WIDTH 14.4 % (12.0-15.0); WHITE BLOOD COUNT 9.7 x10^3/uL (4.8-10.8)
== END 2018-03-03 09:42 | disposition home or self-care (01) ==
LOC: LAB.WCP 09:41
PROVIDERS: ATTEND Physician Assistant Medical
DX: E03.9 Hypothyroidism, unspecified (principal); R50.9 Fever, unspecified
CPT/HCPCS: 36415; 84443; 85025

== ENCOUNTER 2018-04-23 15:49 | Outpatient (CLI) | payer MEDICAID ==
[2018-04-23] MEDS ORDERED: GADOBUTROL 10 MMOL/10 ML VIAL ONE (15:55)
[2018-04-23] MEDS ORDERED: GADOBUTROL 10 MMOL/10 ML VIAL IVP ONE ×2 (16:37)
--- NOTE | 2018-04-24 13:53 | MRI Report ---
Reason: NEUROLOGIC ABNORMALITY Procedure Date: 04/23/2018 Accession Number: [id number] / [id number] Procedure: MRI - Brain W/WO CPT Code: FULL RESULT: EXAM: MRI BRAIN AND PITUITARY WITHOUT AND WITH CONTRAST. EXAM DATE: 04/23/2018 05:03 PM. CLINICAL HISTORY: NEUROLOGIC ABNORMALITY. COMPARISON: BRAIN W/WO 07/17/2017 12:45 PM. TECHNIQUE: Multiplanar, multisequence T1-weighted and fluid-sensitive MR sequences of the brain and pituitary were performed. Other: None. IV Contrast: 9 cc Gadavist. FINDINGS: Brain Volume: Normal for age. Parenchyma: No masses, infarcts, or hemorrhage. A punctate 2.5 mm focus of white matter FLAIR bright signal is seen anteromedially in the right frontal lobe, unchanged. Otherwise normal valadez matter and white matter signal intensity is identified. No abnormal enhancement. Pituitary: 7.2 mm craniocaudally x 14.8 mm AP x 12.6 mm anteriorly and 3.6 mm posteriorly transversely. A focal 4.5 x 4.7 x 3.3 mm hypoenhancing focus is seen centrally at the junction of the anterior and posterior lobes. This demonstrates mild increased T1 signal on precontrast imaging. This is isointense on T2-weighted imaging. Mild superior convexity of the diaphragma sellae is seen. The pituitary stalk is midline. The cavernous sinuses and optic chiasm are unremarkable. Note is made of medial deviation of the cavernous ICA bilaterally effacing and thinning the posterior aspect of pituitary gland in the coronal plane. Ventricles/Cisterns: The ventricles, sulci, and cisterns are unremarkable. No abnormal extra-axial fluid collection or hemorrhage. Orbits: Symmetric and unremarkable. IAC: Symmetric and unremarkable. Vasculature: Normal signal flow void is seen in the major arterial structures at the skull base. The dural sinuses are patent and enhance normally. The right transverse sinus and jugular bulb are dominant. Sinuses: No acute sinus disease. Bones: No focal pathologic appearing marrow signal changes. Other: None. IMPRESSION: 1. Negative MRI of the brain without and with contrast. No acute abnormality. 2. Focal 4.5 x 4.7 x 3.3 mm hypoenhancing nodule in the midline at the junction of the anterior and posterior lobes of the pituitary gland. This demonstrates precontrast T1 hyperintense signal. This could represent a pars intermedia cyst with hemorrhagic or proteinaceous debris versus pituitary microadenoma. Correlation with laboratory endocrinology studies may be of value. -Note there is medial deviation of the proximal cavernous ICA bilaterally. This effaces the posterior aspect of the pituitary gland which is narrowed in the coronal plane. 3. Punctate focus of white matter FLAIR bright signal anteromedially in the right frontal lobe is unchanged. This is nonspecific. [facility]
== END 2018-04-23 15:50 | disposition home or self-care (01) ==
LOC: DI 15:49
PROVIDERS: ATTEND Physician Assistant Medical
DX: E23.6 Other disorders of pituitary gland (principal); R29.90 Unspecified symptoms and signs involving the nervous system
CPT/HCPCS: 70553; A9585

== ENCOUNTER 2018-05-09 07:49 | Outpatient (CLI) | payer MEDICAID | END 2018-05-09 07:50 | disposition home or self-care (01) | LOC: LAB 07:49 | DX: D35.2 Benign neoplasm of pituitary gland (principal) | CPT/HCPCS: 36415; 82533 ==

== ENCOUNTER 2018-07-02 10:37 | Outpatient (CLI) | payer MEDICAID ==
[2018-07-02 11:46] LABS: THYROID STIMULATING HORMONE 0.44 uIU/mL (0.34-5.60)
[2018-07-02 11:48] LABS: FREE T4 (FREE THYROXINE) 1.12 ng/dL (0.58-1.64)
== END 2018-07-02 10:38 | disposition home or self-care (01) ==
LOC: LAB 10:37
PROVIDERS: ATTEND Internal Medicine Endocrinology, Diabetes & Metabolism
DX: D35.2 Benign neoplasm of pituitary gland (principal)
CPT/HCPCS: 36415; 84439; 84443

== ENCOUNTER 2018-09-24 09:40 | Outpatient (CLI) | payer MEDICAID ==
--- NOTE | 2018-09-24 13:15 | XRAY Report ---
Reason: FOOT PAIN,LEFT Procedure Date: 09/24/2018 Accession Number: [id number] / [id number] Procedure: WCP - Foot 2 View LT CPT Code: FULL RESULT: EXAM: LEFT FOOT RADIOGRAPHY EXAM DATE: 09/24/2018 09:50 AM. CLINICAL HISTORY: Left foot pain. COMPARISON: None. TECHNIQUE: 3 views. FINDINGS: Bones: Minimal inferior calcaneal spurring. No fracture detected. Joints: Normal. No subluxations. Soft Tissues: Normal. No soft tissue swelling. IMPRESSION: Minimal inferior calcaneal spurring, correlate to physical exam. [facility]
== END 2018-09-24 09:41 | disposition home or self-care (01) ==
LOC: DI.WCP 09:40
PROVIDERS: ATTEND Physician Assistant Medical
DX: M77.32 Calcaneal spur, left foot (principal)

== ENCOUNTER 2019-01-05 10:12 | Outpatient (CLI) | payer MEDICAID ==
--- NOTE | 2019-01-05 11:15 | SLEEP CARE CONSULTATION ---
Information from patient questionnaire entered by Sarah Kwon. I have reviewed and concur with the information entered by Sarah Kwon. This document represents the service I personally performed and the decisions made by Salvador kirby Jakdej, MD, [facility]. History of Present Illness Previous diagnosis: Mild, Obstructive Sleep Apnea-Hypopnea Syndrome AHI: 7.8 Reason for CPAP/BiPAP follow up: annual Equipment type: CPAP Equipment obtained from: [employer] Prior sleep studies: Yes Year and Where: 2009 [facility] HPI additional information: HPI: Ms. Parker returned with her mother today for annual follow up of nasal CPAP therapy. She was diagnosed to have mild obstructive sleep apnea-hypopnea syndrome. The patient had bariatric surgery and lost 150 lbs. She stopped using CPAP about 3 years ago. A follow up sleep study was ordered two years ago but she never had it. Now she complains of memory problems, facial numbness, and overwhelming fatigue. Her neurologist instructed her to return for a sleep study. She has regained 20 lbs. She does not snore according to her mother. Her weight is now 240 lbs (was 340 lbs at her sleep study in 2009). Subjective Initial Niwot Sleepiness Scale score: 7 Current Ni[place] Sleepiness Scale score: 12 Physical Exam Weight (kg): 108.862 kg Impression and Plan IMPRESSION: 1. Obstructive Sleep Apnea-Hypopnea Syndrome, mild, possibly cured with 100-lb weight loss. The patient should have a full face mask sleep study to confirm the resolution of the sleep-disordered breathing. If she continues to have obstructive sleep apnea-hypopnea, it might explain some of her symptoms. PLAN: 1. Schedule an in-laboratory polysomnography. 2. Try to lose weight 3. Return for follow up after the sleep study. I spent 100% of this 15 minute visit face to face with the patient with greater than 50% of this was spent time counseling the patient and coordination of care.
== END 2019-01-05 10:13 | disposition home or self-care (01) ==
LOC: SC 10:12
PROVIDERS: ATTEND Internal Medicine Pulmonary Disease
DX: G47.33 Obstructive sleep apnea (adult) (pediatric) (principal)
CPT/HCPCS: 99212; 99213

== ENCOUNTER → 2019-01-11 | Outpatient (CLI) | payer MEDICAID | LOC: SC 19:30 | PROVIDERS: ATTEND Internal Medicine Pulmonary Disease | DX: G47.10 Hypersomnia, unspecified (principal) | CPT/HCPCS: 95806 ==

== ENCOUNTER 2019-01-21 08:00 | Outpatient (CLI) | payer MEDICAID | END 2019-01-21 23:59 | disposition home or self-care (01) | LOC: LAB.WCP 08:00 | PROVIDERS: ATTEND Physician Assistant Medical | DX: E53.8 Deficiency of other specified B group vitamins (principal); R29.90 Unspecified symptoms and signs involving the nervous system; R53.83 Other fatigue | CPT/HCPCS: 36415; 82607; 83921 ==

== ENCOUNTER 2019-01-27 09:22 | Outpatient (CLI) | payer MEDICAID ==
--- NOTE | 2019-01-27 09:56 | SLEEP CARE CONSULTATION ---
Information from patient questionnaire entered by Sarah Kwon. I have reviewed and concur with the information entered by Sarah Kwon. This document represents the service I personally performed and the decisions made by me, Yair Franco MD, [facility]. History of Present Illness Initial Cov[place] Sleepiness Scale score: 20 Current Cov[place] Sleepiness Scale score: 10 Additional HPI information: HPI: returned with her father for follow up of the home sleep apnea test (HSAT) she had on 01/11/2019. The test showed no significant sleep disordered breathing. The AHI was only 1.8. Russell oxygen saturation was 90%. The patient slept in both supine and non-supine positions. The patient was informed of these findings. I explained to her that she no longer has sleep-disordered breathing after the 150-lb weight loss. Allergies and Home Medications Drug allergies reviewed: Yes Home medication list reviewed: Yes Review of Systems Review of systems same as previous: Yes Impression and Plan IMPRESSION: 1. Obstructive Sleep Apnea-Hypopnea Syndrome, mild, resolved with weight loss from the bariatric surgery. The patient has not used her CPAP since 2016. CPAP therapy is not indicated. PLAN: 1. Avoid weight regain. 2. Return for follow up on as needed basis. I spent 100% of this 15 minute visit face to face with the patient with greater than 50% of this was spent time counseling the patient and coordination of care.
== END 2019-01-27 09:23 | disposition home or self-care (01) ==
LOC: SC 09:22
PROVIDERS: ATTEND Internal Medicine Pulmonary Disease
DX: G47.33 Obstructive sleep apnea (adult) (pediatric) (principal)
CPT/HCPCS: 99212; 99213

== ENCOUNTER 2019-03-10 07:00 | Outpatient (CLI) | payer MEDICAID ==
[2019-03-10 13:08] LABS: BASOPHILS # (AUTO) 0.1 10^3/uL (0.0-0.1); EOSINOPHILS # (AUTO) 0.2 10^3/uL (0.0-0.7); EOSINOPHILS % (AUTO) 2.5 %; HGB - HEMOGLOBIN 13.1 g/dL (12.0-16.0); LYMPHOCYTES # (AUTO) 1.6 10^3/uL (1.5-3.5); LYMPHOCYTES % (AUTO) 21.5 %; MEAN CORPUSCULAR HEMOGLOBIN 29.2 pg (27.0-31.0); MEAN CORPUSCULAR VOLUME 91.5 fL (81.0-99.0); MEAN PLATELET VOLUME 9.9 fL (7.9-10.8); MONOCYTES # (AUTO) 0.6 10^3/uL (0.0-1.0); MONOCYTES % (AUTO) 7.6 %; NEUTROPHILS # (AUTO) 4.9 10^3/uL (1.5-6.6); NEUTROPHILS % (AUTO) 66.8 %; PLT - PLATELET COUNT 301 10^3/uL (130-450); RED BLOOD COUNT 4.48 10^6/uL (4.20-5.40); RED CELL DISTRIBUTION WIDTH 12.9 % (12.0-15.0); WHITE BLOOD COUNT 7.3 x10^3/uL (4.8-10.8)
[2019-03-10 13:17] LABS: ALBUMIN 4.1 g/dL (3.2-5.5); ALBUMIN/GLOBULIN RATIO 1.5 (1.0-2.2); BILIRUBIN,TOTAL 0.5 mg/dL (0.2-1.0); CREATININE 0.7 mg/dL (0.4-1.0); TOTAL PROTEIN 6.9 g/dL (6.7-8.2)
[2019-03-11 12:02] LABS: HOMOCYSTEINE 9.4 umol/L (<10.4)
== END 2019-03-10 23:59 | disposition home or self-care (01) ==
LOC: LAB.WCP 07:00
PROVIDERS: ATTEND Physician Assistant Medical
DX: R29.90 Unspecified symptoms and signs involving the nervous system (principal)
CPT/HCPCS: 36415; 80053; 81599; 82390; 82746; 83090; 84425; 85025; 86340

== ENCOUNTER 2019-05-15 09:29 | Outpatient (CLI) | payer MEDICAID | END 2019-05-15 23:59 | disposition home or self-care (01) | LOC: LAB.WCP 09:29 | PROVIDERS: ATTEND Physician Assistant Medical | DX: E51.2 Wernicke's encephalopathy (principal); E03.9 Hypothyroidism, unspecified | CPT/HCPCS: 36415; 83735; 84425; 84443 ==

== ENCOUNTER 2019-11-09 09:58 | Outpatient (CLI) | payer MEDICAID ==
[2019-11-09 14:00] LABS: FREE T4 (FREE THYROXINE) 1.14 ng/dL (0.58-1.64)
== END 2019-11-09 23:59 | disposition home or self-care (01) ==
LOC: LAB.WCP 09:58
PROVIDERS: ATTEND Physician Assistant Medical
DX: E03.9 Hypothyroidism, unspecified (principal); E51.9 Thiamine deficiency, unspecified
CPT/HCPCS: 36415; 84425; 84439; 84443

== ENCOUNTER 2020-01-07 07:00 | Outpatient (CLI) | payer MEDICAID ==
[2020-01-07 19:18] LABS: H. PYLORIS ANTIGEN STL NEGATIVE (Negative)
== END 2020-01-07 23:59 | disposition home or self-care (01) ==
LOC: LAB.R 07:00
PROVIDERS: ATTEND Nurse Practitioner Family
DX: R10.13 Epigastric pain (principal)
CPT/HCPCS: 87338

== ENCOUNTER 2020-07-05 08:00 | Outpatient (CLI) | payer MEDICAID ==
[2020-07-05 10:44] LABS: FREE T4 (FREE THYROXINE) 1.14 ng/dL (0.58-1.64)
== END 2020-07-05 23:59 | disposition home or self-care (01) ==
LOC: LAB 08:00
PROVIDERS: ATTEND Physician Assistant Medical
DX: E03.9 Hypothyroidism, unspecified (principal); E51.9 Thiamine deficiency, unspecified
CPT/HCPCS: 36415; 84425; 84439; 84443

== ENCOUNTER 2020-09-16 08:00 | Outpatient (CLI) | payer MEDICAID ==
[2020-09-16 18:15] LABS: THYROID STIMULATING HORMONE 2.15 uIU/mL (0.34-5.60)
== END 2020-09-16 23:59 | disposition home or self-care (01) ==
LOC: LAB.WCP 08:00
PROVIDERS: ATTEND Physician Assistant Medical
DX: E03.9 Hypothyroidism, unspecified (principal)
CPT/HCPCS: 36415; 84443

== ENCOUNTER 2021-04-07 08:00 | Outpatient (CLI) | payer MEDICAID ==
[2021-04-07 17:55] LABS: BASOPHILS # (AUTO) 0.1 10^3/uL (0.0-0.1); BASOPHILS % (AUTO) 1.2 %; EOSINOPHILS # (AUTO) 0.3 10^3/uL (0.0-0.7); EOSINOPHILS % (AUTO) 3.4 %; HCT - HEMATOCRIT 42.6 % (37.0-47.0); HGB - HEMOGLOBIN 13.3 g/dL (12.0-16.0); LYMPHOCYTES # (AUTO) 2.1 10^3/uL (1.5-3.5); LYMPHOCYTES % (AUTO) 23.1 %; MEAN CORPUSCULAR HEMOGLOBIN 29.8 pg (27.0-31.0); MEAN CORPUSCULAR HGB CONC 31.2 g/dL (32.0-36.0); MEAN CORPUSCULAR VOLUME 95.3 fL (81.0-99.0); MONOCYTES # (AUTO) 0.6 10^3/uL (0.0-1.0); MONOCYTES % (AUTO) 6.5 %; NEUTROPHILS # (AUTO) 5.8 10^3/uL (1.5-6.6); NEUTROPHILS % (AUTO) 65.5 %; PLT - PLATELET COUNT 321 10^3/uL (130-450); RED BLOOD COUNT 4.47 10^6/uL (4.20-5.40); RED CELL DISTRIBUTION WIDTH 12.7 % (12.0-15.0); WHITE BLOOD COUNT 8.9 x10^3/uL (4.8-10.8)
[2021-04-07 18:39] LABS: ALBUMIN 4.1 g/dL (3.2-5.5); ALBUMIN/GLOBULIN RATIO 1.5 (1.0-2.2); ALKALINE PHOSPHATASE 43 IU/L (42-121); ALT ALANINE AMINOTRANSFERASE 20 IU/L (10-60); AST ASPARTATE AMINOTRANSFERASE 17 IU/L (10-42); BILIRUBIN,TOTAL 0.5 mg/dL (0.2-1.0); BUN - BLOOD UREA NITROGEN 23 mg/dL (6-20); CHOLESTEROL 179 mg/dL; CREATININE 0.7 mg/dL (0.4-1.0); GFR - MDRD 92 (>89); HDL CHOLESTEROL 59 mg/dL; LDL CHOLESTEROL,CALCULATED 107 mg/dL; LDL/HDL RATIO 1.8 (<4.4); TOTAL PROTEIN 6.9 g/dL (6.7-8.2); TRIGLYCERIDES 65 mg/dL; VLDL CHOLESTEROL 13 mg/dL
[2021-04-07 18:45] LABS: THYROID STIMULATING HORMONE 16.01 uIU/mL (0.34-5.60)
[2021-04-07 19:04] LABS: CALCIUM 9.2 mg/dL (8.5-10.3); CARBON DIOXIDE - CO2 27 mmol/L (21-32); CHLORIDE 105 mmol/L (101-111); GLUCOSE 83 mg/dL (70-100); POTASSIUM 4.1 mmol/L (3.5-5.0); SODIUM 141 mmol/L (135-145)
[2021-04-07 19:37] LABS: FREE T4 (FREE THYROXINE) 0.78 ng/dL (0.58-1.64)
== END 2021-04-07 23:59 | disposition home or self-care (01) ==
LOC: LAB.WCP 08:00
PROVIDERS: ATTEND Physician Assistant Medical
DX: Z00.00 Encounter for general adult medical examination without abnormal findings (principal); E51.9 Thiamine deficiency, unspecified; E03.9 Hypothyroidism, unspecified
CPT/HCPCS: 36415; 80053; 80061; 83721; 84425; 84439; 84443; 85025

== ENCOUNTER 2021-04-28 14:28 | Outpatient (CLI) | payer MEDICAID ==
--- NOTE | 2021-04-28 16:19 | XRAY Report ---
PROCEDURE: Cervical Spine Complete INDICATIONS: MIGRAINE HEADACHE TECHNIQUE: 5 view(s) of the cervical spine were acquired. COMPARISON: None. FINDINGS: Reversal of the normal cervical lordosis. Scattered multilevel endplate spurring and diffuse facet ar thropathy. Diffuse minimal narrowing of the disc spaces. On the left, there is minimal C7-T1 bony for aminal narrowing. On the right, no definite bony foraminal stenosis. IMPRESSION: Mild cervical spondylitic changes as above. Reversal of the normal cervical lordosis Reviewed by: Dylan Bond MD on 04/28/2021 4:18 PM PST Approved by: Dylan Bond MD on 04/28/2021 4:18 PM PST Station ID: [id number]
== END 2021-04-28 14:29 | disposition home or self-care (01) ==
LOC: DI 14:28
PROVIDERS: ATTEND Physician Assistant Medical
DX: G43.909 Migraine, unspecified, not intractable, without status migrainosus (principal); M47.812 Spondylosis without myelopathy or radiculopathy, cervical region

== ENCOUNTER 2021-10-24 22:16 | Outpatient (CLI) | payer MEDICAID ==
--- NOTE | 2021-10-25 17:21 | Ultrasound Report ---
PROCEDURE: Abdomen INDICATIONS: SOFT TISSUE MASS TECHNIQUE: Real-time scanning of right lower quadrant abdominal wall was performed with imaging documentation. COMPARISON: None. FINDINGS: Ultrasound examination of right lower anterior abdominal wall shows an oval hypoechoic and solid appe aring structure within subcutaneous soft tissue measures 2.4 x 0.7 x 1.7 cm in size. No internal vasc ularity is seen. This structure is partially compressible. Posterior acoustic enhancement is noted th rough this structure. IMPRESSION: Avascular hypoechoic structure within right lower anterior abdominal wall subcutaneous soft tissue an d measures 2.4 x 0.7 x 1.7 cm in size. Finding may represent benign process such as sebaceous cyst. N o vascular mass is noted. Reviewed by: Benson Osorio MD on 10/25/2021 5:20 PM PDT Approved by: Benson Osorio MD on 10/25/2021 5:20 PM PDT Station ID: [id number]
== END 2021-10-24 22:17 | disposition home or self-care (01) ==
LOC: DI 22:16
PROVIDERS: ATTEND Physician Assistant Medical
DX: R19.03 Right lower quadrant abdominal swelling, mass and lump (principal)

== ENCOUNTER 2022-01-22 08:49 | Outpatient (CLI) | payer MEDICAID ==
[2022-01-22 09:38] LABS: THYROID STIMULATING HORMONE 1.73 uIU/mL (0.34-5.60)
[2022-01-23 13:09] LABS: ANTI-DNA (DS) AB QN <1 IU/mL (0-9); CENTROMERE B ANTIBODIES <0.2 AI (0.0-0.9); CHROMATIN ANTIBODIES <0.2 AI (0.0-0.9); JO-1 AB <0.2 AI (0.0-0.9); RIBOSOMAL P ANTIBODIES <0.2 AI (0.0-0.9); RNP ANTIBODIES <0.2 AI (0.0-0.9); SCLERODERMA-70 ANTIBODIES <0.2 AI (0.0-0.9); SJOGREN'S ANTI-SS-A <0.2 AI (0.0-0.9); SJOGREN'S ANTI-SS-B <0.2 AI (0.0-0.9); SMITH ANTIBODIES <0.2 AI (0.0-0.9); SMITH/RNP ANTIBODIES <0.2 AI (0.0-0.9)
[2022-01-23 16:08] LABS: ARSENIC BLOOD None Detected ug/L (0-9); LEAD BLOOD (ADULT) <1 ug/dL (0-4); MERCURY BLOOD None Detected ug/L (0.0-14.9)
== END 2022-01-22 08:50 | disposition home or self-care (01) ==
LOC: LAB 08:49
PROVIDERS: ATTEND Physician Assistant Medical
DX: R29.90 Unspecified symptoms and signs involving the nervous system (principal); E03.9 Hypothyroidism, unspecified
CPT/HCPCS: 36415; 82175; 83516; 83655; 83825; 84443; 86225; 86235

== ENCOUNTER 2022-02-07 09:29 | Outpatient (CLI) | payer MEDICAID ==
[2022-02-07 10:13] VITALS: BP 102/60
--- NOTE | 2022-02-07 10:13 | SLEEP CARE CONSULTATION ---
Information from patient questionnaire entered by Chelita Sorensen. I have reviewed and concur with the information entered by Chelita Sorensen. This document represents the service I personally performed and the decisions made by , Charu Ruiz ARNP. History of Present Illness Service Date and Time: 02/07/2022 0929 Reason for Visit: Re-establish [facility] (LAST SEEN 01/2019) Chief Complaint: reports: Unrefreshed sleep, Excessive daytime sleepiness, Fatigue, Frequent awakenings at night, Other (INABILITY TO STAY ASLEEP, DREAMS, WANDERING HALF ASLEEP) Date of Onset: 5 YEARS Usual bedtime: 9-10PM Time it takes to fall asleep: 20-30 Snores at night: No Observed to quit breathing while asleep: No Number of times waking at night: 3 Reasons for waking at night: reports: Other (UNKNOWN REASON). denies: Choking, Snoring, Gasping for air Toss, Turn, or Twitch while sleeping: No Recalls having dreams: Yes Usually gets out of bed at: 5 AM Feels refreshed in the morning: No Morning headache: Yes (1-2 days a week; SOMETIMES, RESOLVES AFTER MEDS LATER IN THE DAY) Sleepy or fatigued during the day: Yes Ever fallen asleep while driving: No Takes day naps: Yes (SOMETIMES; 1-2 times for 20-30 minutes) Dreams during day naps: Yes Prior sleep studies: Yes Year and Where: 2009 [facility] Additional HPI information: I had the pleasure of seeing MASOUD COPPOLA today regarding the possibility of her having a sleep disorder. Her current complaints are excessive daytime sleepiness, fatigue and frequent night awakening. She also states an inability to stay asleep, lots of dreams and is wandering half asleep at night. Patient was previously diagnosed mild obstructive sleep apnea that resolved with 150 pound weight loss from bariatric surgery. Her last AHI was 1.8 in 2019. She returns today because she just cannot stay sleep at night. She will lay down and only take 20-30 minutes to fall asleep. But she wakes up about 3 times a night and cannot return to sleep for an hour. She is only getting about 4 hours of sleep at night on average. She states she will wake up with food on her clothes and she does not remember eating before bed. She will wake up in different locations in her home. She will have gone to sleep in her bed and wake up on the couch. Sometimes she will have vague memory of moving there during the night. She sometimes wakes up with a feeling she might have went outside. She has regained about 70 lbs of weight back over the last 4 years. She has tried medications to help her stay asleep and this seems to make things worse and she has no memory of things happening at night. She states her fiance and daughter have not noted snoring at night. She feels she is constantly up during the night. Patient states that she has had issues with fatigue, sleep, memory, speech and muscle weakness since 2017. She is hoping to get a sleep study to see if her sleep apnea has returned or find out any other reason she cannot sleep well at night. - Parasomnia Symptoms Ever been unable to move upon waking from sleep: No Walks in sleep: Yes (SOMETIMES, HALF ASLEEP) Talks in sleep: Yes Ever acted out dreams in sleep: Yes (feels like she is half awake/half asleep; "in betweens") Ever felt weak in the knees when startled or emotional: Yes (has fallen to ground, 6 months ago) Bothered by creepy, crawly, restless sensations in legs: Yes (takes gabapentin, helps with crawlies (legs, arms, shoulders)) Problems with memory or concentration: Yes (both; colton memory) Subjective Initial Rodney Sleepiness Scale score: 20 Current Rodney Sleepiness Scale score: 14 (9-7-22) Past Medical History Past Medical History: reports: Hypothyroidism, Depression, Attention deficit, Other (MEMORY AND SPEECH ISSUES ) Social History The patient's occupation is a [employer]. Patient is Single and lives in [place]. Have you smoked in the past 12 months: No Cigarettes per day (20/pack): 20 Years of smokin Quit date: 2017 Smoking Pack Years: 20.0 Alcohol use: No Caffeine use: Yes Caffeine amount and frequency: 1-2 DRINKS, 1-2 TIMES A DAY Family History Family history of sleep disordered breathing: Yes Family Hx Sleep Apnea: Mother: Sleep apnea - Treated, Father: Snoring, Sleep apnea - Treated Allergies and Home Medications Known drug allergies: Yes Drug allergies reviewed: Yes Home medication list reviewed: Yes Allergy and home medication list: Allergies bee venom protein (honey bee) Allergy (Verified 04/09/19 11:59) Respiratory ondansetron Allergy (Verified 04/09/19 11:59) Emesis hydrocodone Adverse Reaction (Verified 12/20/21 11:02) Itching Medications: Gabapentin 3600 mg daily Levothyroxine 150 mcg Hydrocortisone 2 tabs daily (low dose) Imitrex 50 mg, prn Review of Systems Weight gain over past 5 years: 70 Cardiovascular: reports: palpitations, other (BRADYCARDIA) Gastrointestinal: reports: difficulty swallowing Urinary: reports: incontinence (SLIGHT) Neurological: reports: headaches, gait or balance problems Psychiatric: reports: Attention Deficit Hyperactivity, depression Ear/Nose/Throat: reports: wisdom teeth removed. denies: tonsillectomy Endocrine: reports: thyroid disease, sluggishness, increased urination, unexplained weakness Musculoskeletal: reports: joint pain, neck pain, back pain, muscle pain or cramping Physical Exam Vital signs obtained and entered by: SANTOS ROGEL Blood Pressure: 102/60 (LEFT ARM ) Cuff size: regular Heart Rate: 64 O2 Saturation: 97 Height: 5 ft 9 in Weight: 292 lb Body Mass Index: 43.1 BMI Classification: Morbidly Obese Neck circumference: 15 (INCHES ) Mouth and throat: narrow oropharynx Soft palate: normal Hard palate: normal Uvula: normal Uvula visualization: 25% Mallampati Class III Tongue: enlarged in size with teeth rankin on lateral edges Tonsils: small Neck: normal w/o lymphadenopathy or thyromegaly Heart: regular rate and rhythm Lungs: clear bilaterally Impression and Plan 1. Suspected Obstructive Sleep Apnea-Hypopnea Syndrome, as previously diagnosed in 2010 and as suggested by a more current history of morning headache, frequent awakening during the night, unrefreshed sleep, cognitive impairment, and excessive daytime sleepiness. I recommend proceeding to polysomnography to confirm the diagnosis and to assess severity. If the patient has significant sleep disordered breathing, a manual CPAP titration study will also be performed to find the optimal treatment pressure. I informed the patient of what the sleep studies involve and after some discussion, obtained agreement to proceed. The pathophysiology of obstructive sleep apnea-hypopnea syndrome was discussed with the patient and health risks of cardiovascular and cerebrovascular disease if not treated. Risks of drowsy driving discussed in detail and patient advised to avoid long distance driving and to thread pulling machine attendant at the first sign of drowsiness. Patient agreed to plan. * Schedule polysomnography * Avoid long distance driving or driving when feeling sleepy. * Avoid alcohol, sedative and muscle relaxant around bedtime. * Attempt to lose weight. * Review instructions provided by trained office staff on how to prepare for the sleep study. * Return for follow-up after sleep study completed. Counseling Topics: Weight loss health impact Visit Type: In Office Time Spent with Patient (minutes): 31 Provider Statement: I spent 100% of the Face to Face Visit with the patient with greater than 50% spent counseling the patient and coordination of care.
== END 2022-02-07 09:30 | disposition home or self-care (01) ==
LOC: SC 09:29
PROVIDERS: ATTEND Nurse Practitioner Family
DX: G47.33 Obstructive sleep apnea (adult) (pediatric) (principal); E66.01 Morbid (severe) obesity due to excess calories; Z68.43 Body mass index [BMI] 50.0-59.9, adult; Z87.891 Personal history of nicotine dependence
CPT/HCPCS: 99203; 99212

== ENCOUNTER 2022-02-09 11:00 | Outpatient (CLI) | payer MEDICAID | END 2022-02-09 11:01 | disposition home or self-care (01) | LOC: MAC.MOP 11:00 | PROVIDERS: ATTEND Physician Assistant Medical | DX: R00.1 Bradycardia, unspecified (principal); I49.1 Atrial premature depolarization; I49.3 Ventricular premature depolarization | CPT/HCPCS: 93248 ==

== ENCOUNTER 2022-02-28 19:40 | Outpatient (CLI) | payer MEDICAID | END 2022-02-28 19:41 | disposition home or self-care (01) | LOC: SC 19:40 | PROVIDERS: ATTEND Nurse Practitioner Family | DX: G47.33 Obstructive sleep apnea (adult) (pediatric) (principal) | CPT/HCPCS: 95810 ==

== ENCOUNTER 2022-04-02 08:06 | Outpatient (CLI) | payer MEDICAID ==
[2022-04-02 08:34] LABS: BASOPHILS # (AUTO) 0.1 10^3/uL (0.0-0.1); BASOPHILS % (AUTO) 1.1 %; EOSINOPHILS # (AUTO) 0.2 10^3/uL (0.0-0.7); EOSINOPHILS % (AUTO) 2.5 %; HCT - HEMATOCRIT 42.7 % (37.0-47.0); HGB - HEMOGLOBIN 13.4 g/dL (12.0-16.0); LYMPHOCYTES # (AUTO) 1.9 10^3/uL (1.5-3.5); LYMPHOCYTES % (AUTO) 18.9 %; MEAN CORPUSCULAR HEMOGLOBIN 28.3 pg (27.0-31.0); MEAN CORPUSCULAR HGB CONC 31.4 g/dL (32.0-36.0); MEAN CORPUSCULAR VOLUME 90.3 fL (81.0-99.0); MEAN PLATELET VOLUME 9.1 fL (7.9-10.8); MONOCYTES # (AUTO) 0.6 10^3/uL (0.0-1.0); MONOCYTES % (AUTO) 5.8 %; PLT - PLATELET COUNT 314 10^3/uL (130-450); RED BLOOD COUNT 4.73 10^6/uL (4.20-5.40); WHITE BLOOD COUNT 9.8 x10^3/uL (4.8-10.8)
== END 2022-04-02 08:07 | disposition home or self-care (01) ==
LOC: LAB 08:06
PROVIDERS: ATTEND Obstetrics & Gynecology
DX: Z01.812 Encounter for preprocedural laboratory examination (principal); R87.613 High grade squamous intraepithelial lesion on cytologic smear of cervix (HGSIL); R87.810 Cervical high risk human papillomavirus (HPV) DNA test positive
CPT/HCPCS: 36415; 85025; 86850; 86900; 86901

== ENCOUNTER 2022-04-03 06:25 | Day surgery (SDC) | payer MEDICAID ==
[2022-04-03] MEDS ORDERED: LACTATED RINGERS 1,000 ML IV ONE ×2 (06:28→08:30)
[2022-04-03 06:42] LABS: HCG UR QUAL NEGATIVE
[2022-04-03] MEDS ORDERED: LIDOCAINE MPF 2%-EPI 1:200000 20 ML VIAL ONE (07:15)
[2022-04-03] MEDS ORDERED: POTASSIUM IODIDE/IODINE 14 ML SOLUTION ONE (07:15)
[2022-04-03] MEDS ORDERED: BUPIVACAINE 0.5% PF 30 ML VIAL ONE (07:15)
[2022-04-03] MEDS ORDERED: PROPOFOL 200 MG/20 ML VIAL IVP ONE (07:15)
[2022-04-03] MEDS ORDERED: MIDAZOLAM 2 MG/2 ML VIAL ONE (07:16)
[2022-04-03] MEDS ORDERED: fentaNYL 100 MCG/2 ML VIAL ONE (07:16)
--- NOTE | 2022-04-03 07:19 | ANESTHESIA ---
Pre-Anesthesia VS, & Labs - Diagnosis HIGH GRADE SQUAMOUS INTRAEPITHELIAL LESION; HIGH RISK HPV POSITIVE - Procedure ELECTRODE BIOPSY OF CERVIX; LOOP Vital Signs: Temp Pulse Resp BP Pulse Ox O2 Flow Rate 36.3 C L 55 L 16 112/79 98 0 04/03/22 06:41 04/03/22 06:41 04/03/22 06:41 04/03/22 06:41 04/03/22 06:41 04/03/22 06:41 Height: 5 ft 8 in Weight (kg): 134.2 kg Body Mass Index: 44.9 BMI Classification: Morbidly Obese - NPO >8 hours - Is Patient ?: No Home Medications and Allergies Home Medications: Ambulatory Orders Albuterol Sulfate [Proair Digihaler] 2 puffs IH Q4H PRN 03/29/22 Atovaquone [Mepron] 750 mg PO DAILY 03/29/22 EPINEPHrine [Epinephrine] 0.3 mg IJ ONCE PRN 03/29/22 Fluticasone [Flonase] 1 sprays RIK BID PRN 03/29/22 Gabapentin [Neurontin] 900 mg PO BID 03/29/22 Galcanezumab-Gnlm [Emgality Syringe] 120 mg SQ ONCE 03/29/22 Metoclopramide [Reglan] 10 mg PO TID 03/29/22 Omeprazole 20 mg PO DAILY 03/29/22 Prochlorperazine Maleate [Compazine] 10 mg PO Q4HR PRN 03/29/22 Sumatriptan Succinate [Imitrex] 50 mg PO ONCE PRN 03/29/22 Levothyroxine [Synthroid] 150 mcg PO DAILY 04/13/15 Multivitamin [Daily Multiple Vitamin] 1 each PO DAILY 04/09/19 Albuterol Sulfate [Proair Digihaler] 2 puffs IH Q4H PRN 03/29/22 Atovaquone [Mepron] 750 mg PO DAILY 03/29/22 EPINEPHrine [Epinephrine] 0.3 mg IJ ONCE PRN 03/29/22 Fluticasone [Flonase] 1 sprays RIK BID PRN 03/29/22 Gabapentin [Neurontin] 900 mg PO BID 03/29/22 Galcanezumab-Gnlm [Emgality Syringe] 120 mg SQ ONCE 03/29/22 Metoclopramide [Reglan] 10 mg PO TID 03/29/22 Omeprazole 20 mg PO DAILY 03/29/22 Prochlorperazine Maleate [Compazine] 10 mg PO Q4HR PRN 03/29/22 Sumatriptan Succinate [Imitrex] 50 mg PO ONCE PRN 03/29/22 Allergies/Adverse Reactions: Allergies Allergy/AdvReac Type Severity Reaction Status Date / Time bee venom protein (honey bee) Allergy Respiratory Verified 04/09/19 11:59 ondansetron Allergy Emesis Verified 04/09/19 11:59 hydrocodone AdvReac Itching Verified 12/20/21 11:02 Anes History & Medical History - Anesthetic History Anesthesia Complications: reports: No previous complications Family history of Anesthesia Complications: Denies Family history of Malignant Hyperthermia: Denies - Medical History Cardiovascular: reports: Murmur, Arrhythmia Pulmonary: reports: Asthma Gastrointestinal: reports: Ulcers Urinary: reports: None Neuro: reports: Migraines, Other (LYME'S DISEASE, SHORT TERM MEMORY LOSS) Musculoskeletal: reports: Fatigue Endocrine/Autoimmune: reports: HyPOthyroidism Blood Disorders: reports: None Skin: reports: None Smoking Status: Former smoker Psychosocial: reports: Anxiety - Surgical History General: reports: Cholecystectomy, Gastric surgery Exam Dental: WNL Mouth Openin Fingerbreadth Neck Mobility: Normal Mallampati classification: I Thyromental Distance: less than 4 cm Cardiovascular: Regular rate (SINUS BRADYCARDIA) Mental/Cognitive Status: Alert/Oriented X3, Normal for patient Cognitive Status: Within normal limits, Memory impairment (PER PT HISTORY) Plan Anesthesia Type: General Consent for Procedure(s) Verified and Reviewed: Yes Code Status: Attempt Resuscitation ASA classification: 2-Mild systemic disease Is this case an emergency?: No
--- NOTE | 2022-04-03 07:23 | HISTORY & PHYSICAL EXAMINATION ---
HPI - History of Present Illness HPI Comment/Other: HPI: Patient is a 41-year-old G1, P1 presents today for scheduled LEEP procedure. She had an HSIL Pap with a colposcopy that showed LÓPEZ-2/3 and HGSIL. She does have a history of a cardiac arrhythmia, but this appeared normal on cardiac monitoring with occasional runs of sinus tachycardia and sinus bradycardia. She did have rare PVC, but otherwise is unremarkable. PMH Obesity Recurrent sinus infection Migraines PCOS Intermittent bradycardia PSH Cholecystectomy [place] teeth removal Radioactive iodine of for hyperactive hypothyroidism Gastric sleeve OB History SH Former smoker, quit in 2018. 20-year smoking history. Denies alcohol or drug use Family History Mother: Arthritis, obesity Father: Obesity Paternal grandmother: Coronary artery disease Paternal grandfather: CVA Aunt: Diabetes mellitus Uncle: Diabetes mellitus Allergies Ortho Tri-Cyclen Amitriptyline, fuzzy Ondansetron, vomiting Hydrocodone, itching Medications Levothyroxine 150 mcg Gabapentin 600 mg methocarbamol 500 mg ProAir Omeprazole Physical exam: General: Alert, oriented, no acute distress Head: Normal cephalic atraumatic Eyes: PERRLA, extraocular motions intact. Respiratory: Normal rate of respiration. No accessory muscle use, normal respiratory effort. Cardiovascular: Regular rate and rhythm Abdomen: Soft nontender, nondistended Extremities: Normal range of motion, no edema, no cords palpated Neuro: Oriented x3. Normal movements Psych: Appropriate mood and affect. Normal judgment and insight PMH/PSH - Past Medical History Cardiovascular: positive: Murmur, Arrhythmia Respiratory: positive: Asthma Endocrine/Autoimmune: positive: HyPOthyroidism GI: positive: Ulcers : positive: None HEENT: positive: Chronic vision loss Psych: positive: None Musculoskeletal: positive: Fatigue Derm: positive: None MRSA Hx?: No - Past Surgical History General: positive: Cholecystectomy, Gastric surgery Social & Family Hx - Social History Does the pt smoke?: Yes Smoking Status: Current every day smoker Does the pt drink ETOH?: No Does the pt have substance abuse?: No - POLST Patient has POLST: No Meds/Allgy - Home Medications Home Medications: Ambulatory Orders Medication Instructions Recorded Confirmed Levothyroxine [Synthroid] 150 mcg PO DAILY 04/13/15 03/29/22 Multivitamin [Daily Multiple 1 each PO DAILY 04/09/19 03/29/22 Vitamin] Albuterol Sulfate [Proair 2 puffs IH Q4H PRN 03/29/22 03/29/22 Digihaler] Atovaquone [Mepron] 750 mg PO DAILY 03/29/22 03/29/22 EPINEPHrine [Epinephrine] 0.3 mg IJ ONCE PRN 03/29/22 03/29/22 Fluticasone [Flonase] 1 sprays RIK BID PRN 03/29/22 03/29/22 Gabapentin [Neurontin] 900 mg PO BID 03/29/22 03/29/22 Galcanezumab-Gnlm [Emgality 120 mg SQ ONCE 03/29/22 03/29/22 Syringe] Metoclopramide [Reglan] 10 mg PO TID 03/29/22 03/29/22 Omeprazole 20 mg PO DAILY 03/29/22 03/29/22 Prochlorperazine Maleate 10 mg PO Q4HR PRN 03/29/22 03/29/22 [Compazine] Sumatriptan Succinate [Imitrex] 50 mg PO ONCE PRN 03/29/22 03/29/22 - Allergies Allergies/Adverse Reactions: Allergies Allergy/AdvReac Type Severity Reaction Status Date / Time bee venom protein (honey bee) Allergy Respiratory Verified 04/09/19 11:59 ondansetron Allergy Emesis Verified 04/09/19 11:59 hydrocodone AdvReac Itching Verified 12/20/21 11:02 Exam - Vital Signs Vital Signs: Vital Signs x48h Temp Pulse Resp BP Pulse Ox O2 Flow Rate 04/03/22 06:41 97.3 F L 55 L 16 112/79 98 0 Results - Lab Results Other Lab Results: Lab Results x24hrs 04/03/22 Range/Units 06:30 Urine HCG, Qual NEGATIVE Impression/Plan - Problem List Problem List: 41-year-old G1, P1 with LÓPEZ-3 here for LEEP 1. LÓPEZ-3 -Counseled on risk, benefits, alternatives of LEEP procedure. Ideally this will be curative. Will likely require follow-up in 6 months to 1 year. -Will follow-up with final pathology. 2. Hypothyroidism -Well-controlled levothyroxine 3. Intermittent sinus bradycardia/tachycardia -Normal monitoring on Holter monitor. Should not affect her surgical care.
[2022-04-03] MEDS ORDERED: DEXAMETHASONE 4 MG/ML VIAL ONE (07:59)
[2022-04-03] MEDS ORDERED: BUPIVACAINE 0.5% PF 30 ML VIAL SUBQ ONE ×2 (08:06)
[2022-04-03] MEDS ORDERED: POTASSIUM IODIDE/IODINE 14 ML SOLUTION TOP ONE (08:06)
[2022-04-03] MEDS ORDERED: FERRIC SUBSULFATE 8 ML SOLUTION (FOR OR) TOP ONE (08:07)
[2022-04-03] MEDS ORDERED: oxyCODONE 5 MG TABLET PO PRN (08:25)
--- NOTE | 2022-04-03 08:25 | OPERATIVE REPORT ---
Operative Report - General Procedure Date: 04/03/22 Planned Procedure: LEEP Pre-Op Diagnosis: LÓPEZ-3 Procedure Performed: LEEP Post Op Diagnosis: LÓPEZ-3 - Procedure Note Primary Surgeon: Petros Queen MD Anesthesia Technique: General LMA Pathology: Anterior cervical lip Endocervical curettage IV Fluids (mL): 400 Estimated Blood Loss (mL): 15 Complications: None - Other Other Information/Narrative: Patient was taken to the operating room and placed in the dorsal lithotomy position. General anesthesia was easily obtained. She was then placed in dorsolithotomy position. She was prepped and draped in the usual sterile fashion. Using a coated speculum attached to suction, visualization of the cervix was achieved. The anterior lip was grasped with single-tooth tenaculum, and the cervix was instilled with 0.5% Marcaine. Using Lugol's solution, the cervix was dyed showing decreased uptake for approximately half a centimeter at 1:00. Decreased uptake also around the squamocolumnar junction. At that point the loop electrode was attached, and starting at the 1 o'clock position outside of the hypopigmented area, and excision was made and extended towards the 9:00 and around the cervix to the 6 o'clock position. From previous biopsy, the LÓPEZ- 2/3 was at 1:00. She did have areas of LÓPEZ-1 at 10:00 and 5:00. This biopsy was placed in formalin and sent to pathology. An ECC was then performed using a Kevorkian curette. The loop was exchanged for a ball electrode and the brisk bleeding areas were cauterized achieving hemostasis. Monsel solution was then placed on the cervix. After rechecking hemostasis, all instruments were removed from the vagina. Counts were correct. Patient was taken to the PACU in stable condition.
[2022-04-03] MEDS ORDERED: METOCLOPRAMIDE 10 MG/2 ML VIAL IVP PRN (08:38)
[2022-04-03] MEDS ORDERED: ONDANSETRON 4 MG/2 ML VIAL IVP PRN (08:38)
[2022-04-03] MEDS ORDERED: ePHEDrine 50 MG/ML VIAL IVP PRN (08:38)
[2022-04-03] MEDS ORDERED: NALOXONE 0.4 MG/ML VIAL IVP PRN (08:38)
[2022-04-03] MEDS ORDERED: HYDROmorphone 0.5 MG/0.5 ML SYRINGE IVP PRN (08:38)
[2022-04-03] MEDS ORDERED: MORPHINE 2 MG/ML CARPUJECT IVP PRN (08:38)
[2022-04-03] MEDS ORDERED: fentaNYL 100 MCG/2 ML VIAL IVP PRN (08:38)
[2022-04-03] MEDS ORDERED: ATROPINE ABBOJECT 1 MG/10 ML SYRINGE IVP PRN (08:38)
[2022-04-03] MEDS ORDERED: ACETAMINOPHEN 1,000 MG/100 ML 1,000 MG/100 ML BAG IV ONE (08:44)
[2022-04-03] MEDS ORDERED: ACETAMINOPHEN 1,000 MG/100 ML 100 ML IV ONE (08:46)
[2022-04-03] MEDS ORDERED: IBUPROFEN 600 MG TABLET PO SCH (09:00)
[2022-04-03] MEDS ORDERED: LACTATED RINGERS 1,000 ML IV SCH (09:00)
[2022-04-03] MEDS ORDERED: oxyCODONE 5 MG TABLET ONE (09:11)
[2022-04-03] MEDS ORDERED: IBUPROFEN 600 MG TABLET PO ONE (09:11)
--- NOTE | 2022-04-03 10:14 | ANESTHESIA POST OP EVALUATION ---
Anesthesia Post Eval - Post Anesthesia Eval Vitals: Last Vital Signs Temp 36.1 C L 04/03/22 09:52 Pulse 65 04/03/22 09:52 Resp 14 04/03/22 09:52 BP 110/76 04/03/22 09:52 Pulse Ox 99 04/03/22 09:52 O2 Flow Rate 0 04/03/22 06:41 CV Function Including HR & BP: Stable Pain Control: Satisfactory Nausea & Vomiting: Negative Mental Status: Baseline Respiratory Status: Airway Patent Hydration Status: Satisfactory Anesthesia Complications: None
[2022-04-03 10:40] VITALS: BP 108/67
== END 2022-04-03 06:26 | disposition home or self-care (01) ==
LOC: SDS 06:25
PROVIDERS: ATTEND Obstetrics & Gynecology
PROC: 0UBC7ZX Excision of Cervix, Via Natural or Artificial Opening, Diagnostic (ICD-10-PCS; principal; 2022-04-03 07:30)
DX: D06.1 Carcinoma in situ of exocervix (principal); E66.01 Morbid (severe) obesity due to excess calories; Z68.41 Body mass index [BMI] 40.0-44.9, adult; Z87.891 Personal history of nicotine dependence
CPT/HCPCS: 57500; 57505; 81025; A9270; J0131; J7120

== ENCOUNTER 2022-04-27 14:03 | Outpatient (CLI) | payer MEDICAID ==
[2022-04-27 14:28] VITALS: BP 98/62
--- NOTE | 2022-04-27 14:28 | SLEEP CARE CONSULTATION ---
Information from patient questionnaire entered by Maddi Thrasher. I have reviewed and concur with the information entered by Maddi Thrasher. This document represents the service I personally performed and the decisions made by Sara kirby Caren J, ARNP. History of Present Illness Service Date and Time: 04/27/2022 1403 Initial [place] Sleepiness Scale score: 20 Current [place] Sleepiness Scale score: 18 Additional HPI information: MASOUD COPPOLA returns for follow up and results of the recently performed polysomnography. The patient was informed of the following findings: No significant sleep disordered breathing with an average AHI of 0.7 and tor oxygen saturation of 89. I explained the pathophysiology behind obstructive sleep apnea. Patient does not have sleep apnea and was advised how weight gain could increase the risk of de veloping sleep apnea in the future. I strongly encouraged the patient to lose weight. Patient has very light snoring. Snoring can be reduced by weight loss. Weight loss is best achieved with diet consult. Patient instructed to contact PCP for referral. Snoring can also be treated with an oral appliance from a dentist. Advised to check insurance coverage. In addition, an ENT evaluation can be do to see if other treatment is indicated. Patient does not drink alcohol. Patient was cautioned about risks of drowsy driving until sleepiness symptoms resolve. Sleep Study - Results Type of Sleep Study: Polysomnography (COMPLETED 02/28/22) Prior sleep studies: Yes Year and Where: 2009 [facility] Allergies and Home Medications Drug allergies reviewed: Yes (as listed in EMR) Home medication list reviewed: Yes (no changes) Review of Systems Review of systems same as previous: Yes (no changes) Physical Exam Vital signs obtained and entered by: MADDI Arias MA Blood Pressure: 98/62 (LEFT ARM) Cuff size: long Heart Rate: 57 O2 Saturation: 98 Height: 5 ft 8 in Weight: 294 lb 3.2 oz Body Mass Index: 44.7 BMI Classification: Morbidly Obese Impression and Plan 1. Insomnia, sleep maintenance. Insomnia is generally caused by an irregular sleep schedule, spending too much time in bed, napping, caffeine, electronics, lack of a relaxing bedtime ritual and clock watching. Other factors can include anxiety/depression, pain, medications, and obstructive sleep apnea. Patient is able to go to sleep initially but will wake up and not be able to return to sleep for about an hour. She will then wake up again after being asleep for 1-2 hours and the cycle will repeat. First I counseled the patient on the importance of a regular sleep schedule, starting with the wake time. I explained the homestatic sleep drive and how maintaining a regular wake time will allow the patient to be tired enough to sleep 15-16 hours later. By waking at the same time, the patient will also feel more alert. This can also be assisted by exposure to bright light for a minimum of 15 minutes a day upon waking. Additionally too much time spent in bed can cause more sleep disruption as most people only need 7-9 hours of sleep. Thus patient advised to restrict time in bed to 7-8 hours. Naps are to be avoided unless overcome by sleepiness. Then naps are to be restricted to one hour and before 3 pm so as not to interfere with nighttime sleep. If unable to go to sleep in an estimated 20 minutes of more, it is advised to leave the bedroom and engage in a quiet activity until sleepy enough to return to bed. If unable to sleep due to things on the mind, it is recommended to write out the concerns or list to do as a release then return to a quiet activity until sleepy enough to return to bed. I also advised trying progressive relaxation with deep breathing when she returns to bed to help her relax and fall asleep faster. She voiced understanding. This is to be repeated as often as necessary to associate the bed with sleep and not frustration to get to sleep. [employer] How to Sleep Better pamphlet given and reviewed. * Attempt to lose weight * Avoid alcohol consumption near bedtime * The patient is cautioned about driving until sleepiness is completely resolved. * Return as needed for follow up. Counseling Topics: Weight loss health impact Visit Type: In Office Time Spent with Patient (minutes): 20 Provider Statement: I spent 100% of the Face to Face Visit with the patient with greater than 50% spent counseling the patient and coordination of care.
== END 2022-04-27 14:04 | disposition home or self-care (01) ==
LOC: SC 14:03
PROVIDERS: ATTEND Nurse Practitioner Family
DX: G47.00 Insomnia, unspecified (principal); E66.01 Morbid (severe) obesity due to excess calories; Z68.41 Body mass index [BMI] 40.0-44.9, adult
CPT/HCPCS: 99212; 99213

== ENCOUNTER 2022-05-15 07:25 | Day surgery (SDC) | payer MEDICAID ==
[2022-05-15] MEDS ORDERED: LIDOCAINE MPF 2%-EPI 1:200000 20 ML VIAL ONE (07:38)
[2022-05-15] MEDS ORDERED: POTASSIUM IODIDE/IODINE 14 ML SOLUTION ONE (07:39)
--- NOTE | 2022-05-15 07:47 | ANESTHESIA ---
Pre-Anesthesia VS, & Labs - Diagnosis Cervical dysplagia - Procedure cold knife biopsy Height: 5 ft 8 in - NPO >8 hours - Is Patient ?: No - Lab Results Fish Bones: 05/15/22 07:49 Home Medications and Allergies Levothyroxine [Synthroid] 150 mcg PO DAILY 04/13/15 Multivitamin [Daily Multiple Vitamin] 1 each PO DAILY 04/09/19 Albuterol Sulfate [Proair Digihaler] 2 puffs IH Q4H PRN 03/29/22 Atovaquone [Mepron] 750 mg PO DAILY 03/29/22 EPINEPHrine [Epinephrine] 0.3 mg IJ ONCE PRN 03/29/22 Fluticasone [Flonase] 1 sprays RIK BID PRN 03/29/22 Gabapentin [Neurontin] 900 mg PO BID 03/29/22 Galcanezumab-Gnlm [Emgality Syringe] 120 mg SQ ONCE 03/29/22 Metoclopramide [Reglan] 10 mg PO TID 03/29/22 Omeprazole 20 mg PO DAILY 03/29/22 Prochlorperazine Maleate [Compazine] 10 mg PO Q4HR PRN 03/29/22 Sumatriptan Succinate [Imitrex] 50 mg PO ONCE PRN 03/29/22 Allergies/Adverse Reactions: Allergies Allergy/AdvReac Type Severity Reaction Status Date / Time bee venom protein (honey bee) Allergy Respiratory Verified 05/15/22 07:33 ondansetron Allergy Emesis Verified 05/15/22 07:33 hydrocodone AdvReac Itching Verified 05/15/22 07:33 Anes History & Medical History - Anesthetic History Anesthesia Complications: reports: No previous complications - Medical History Cardiovascular: reports: Murmur, Arrhythmia Pulmonary: reports: Asthma Gastrointestinal: reports: Ulcers Urinary: reports: None Neuro: reports: Migraines, Other (LYME'S DISEASE, SHORT TERM MEMORY LOSS) Musculoskeletal: reports: Fatigue Endocrine/Autoimmune: reports: HyPOthyroidism Blood Disorders: reports: None Skin: reports: None Smoking Status: Former smoker - Surgical History General: reports: Cholecystectomy, Gastric surgery Gynecologic: reports: LEEP (Cervical surgery) Exam General: Alert, Oriented x3 Dental: WNL Mouth Opening: Greater than 4 Fingerbreadths Neck Mobility: Normal Mallampati classification: II Thyromental Distance: greater than 6 cm Respiratory: Lungs clear Cardiovascular: Regular rate Plan Anesthesia Type: General, Total IV Consent for Procedure(s) Verified and Reviewed: Yes Code Status: Attempt Resuscitation ASA classification: 3-Severe systemic disease Is this case an emergency?: No
[2022-05-15 07:54] LABS: BASOPHILS # (AUTO) 0.1 10^3/uL (0.0-0.1); BASOPHILS % (AUTO) 1.1 %; EOSINOPHILS # (AUTO) 0.3 10^3/uL (0.0-0.7); EOSINOPHILS % (AUTO) 3.1 %; HCT - HEMATOCRIT 45.6 % (37.0-47.0); HGB - HEMOGLOBIN 14.1 g/dL (12.0-16.0); LYMPHOCYTES # (AUTO) 2.4 10^3/uL (1.5-3.5); LYMPHOCYTES % (AUTO) 22.5 %; MEAN CORPUSCULAR HEMOGLOBIN 27.9 pg (27.0-31.0); MEAN CORPUSCULAR HGB CONC 30.9 g/dL (32.0-36.0); MEAN CORPUSCULAR VOLUME 90.1 fL (81.0-99.0); MEAN PLATELET VOLUME 9.4 fL (7.9-10.8); MONOCYTES # (AUTO) 0.7 10^3/uL (0.0-1.0); NEUTROPHILS % (AUTO) 65.8 %; PLT - PLATELET COUNT 316 10^3/uL (130-450); RED BLOOD COUNT 5.06 10^6/uL (4.20-5.40); RED CELL DISTRIBUTION WIDTH 12.9 % (12.0-15.0); WHITE BLOOD COUNT 10.6 x10^3/uL (4.8-10.8)
[2022-05-15] MEDS ORDERED: LACTATED RINGERS 1,000 ML IV ONE (07:54)
[2022-05-15] MEDS ORDERED: fentaNYL 100 MCG/2 ML VIAL ONE (07:55)
[2022-05-15] MEDS ORDERED: MIDAZOLAM 2 MG/2 ML VIAL ONE (07:55)
[2022-05-15] MEDS ORDERED: PROPOFOL 200 MG/20 ML VIAL IVP ONE (07:55)
[2022-05-15 07:57] LABS: HCG UR QUAL NEGATIVE
[2022-05-15] MEDS ORDERED: LIDOCAINE-PF 2% 10 ML AMP SUBQ ONE (07:58)
[2022-05-15] MEDS ORDERED: SCOPOLAMINE PATCH TOP ONE (08:29)
[2022-05-15] MEDS ORDERED: METOCLOPRAMIDE 10 MG/2 ML VIAL ONE (08:52)
[2022-05-15] MEDS ORDERED: ONDANSETRON 4 MG/2 ML VIAL IVP PRN (09:07)
[2022-05-15] MEDS ORDERED: ATROPINE ABBOJECT 1 MG/10 ML SYRINGE IVP PRN (09:07)
[2022-05-15] MEDS ORDERED: NALOXONE 0.4 MG/ML VIAL IVP PRN (09:07)
[2022-05-15] MEDS ORDERED: LIDOCAINE MPF 2%-EPI 1:200000 20 ML VIAL SUBQ ONE ×2 (09:07)
[2022-05-15] MEDS ORDERED: fentaNYL 100 MCG/2 ML VIAL IVP PRN (09:07)
[2022-05-15] MEDS ORDERED: ePHEDrine 50 MG/ML VIAL IVP PRN (09:07)
[2022-05-15] MEDS ORDERED: POTASSIUM IODIDE/IODINE 14 ML SOLUTION TOP ONE (09:15)
[2022-05-15] MEDS ORDERED: FERRIC SUBSULFATE 8 ML SOLUTION (FOR OR) TOP ONE (09:16)
[2022-05-15] MEDS ORDERED: LACTATED RINGERS 100 ML IV ONE (09:45)
[2022-05-15] MEDS ORDERED: traMADol 50 MG TABLET PO PRN (09:59)
[2022-05-15] MEDS ORDERED: LACTATED RINGERS 1,000 ML IV SCH (10:00)
--- NOTE | 2022-05-15 10:01 | OPERATIVE REPORT ---
Operative Report - General Procedure Date: 05/15/22 Planned Procedure: Cold knife cone Pre-Op Diagnosis: [id number]-3 Procedure Performed: Cold knife cone Post Op Diagnosis: Same - Procedure Note Primary Surgeon: Petros Queen MD Secondary Surgeon: PRANAY Heath Anesthesia Provider: Janice Horton CRNA Anesthesia Technique: General LMA Pathology: Cervical conization Complications: None - Other Other Information/Narrative: Patient was taken to the operating room and placed in the dorsal supine position. General LMA anesthesia was obtained without difficulty. She was then placed in the dorsal lithotomy position. She was prepped and draped in the usual sterile fashion. Using a weighted speculum, the cervix was visualized. A Yash was placed in the anterior aspect vagina to help with visualization. The anterior lip of the cervix was grasped with a single-tooth tenaculum. A paracervical block was then performed using 2% lidocaine with epinephrine. Sutures were placed at 3 and 9:00. The cervical canal was also injected with small amount of lidocaine. The cervix was then dilated to 7 mm to allow the dilator for ease of dissection. The cervix was incised at approximately 6:00 with an 11 blade scalpel and followed up the side. After this, the scalpel was changed for a 10 blade where the conization was performed down to the cervical canal using the dilator as a guide. At the end the procedure, the remainder of the biopsy was removed with Keller scissors and the sample was from surrounding tissue. A cone approximately 2 cm wide by 1 cm deep was removed. Due to the difficultly in removing the sample from the surrounding tissue, the orientation was lost. After this hemostasis was achieved with a combination of cautery followed by Monsel solution. A brisk bleeding area at approximately 12:00 was noted and 1 suture was placed. As there is a small amount of oozing, Surgicel was placed over the cervix and tied in place. After this hemostasis was noted. Sponge and sharps counts were correct. Patient was taken out of dorsolithotomy position and taken to the PACU in good condition. After speaking with her fianc, I advised on the neck steps including waiting for pathology, and what to expect with bleeding and Surgicel.
[2022-05-15 10:25] VITALS: BP 128/75
[2022-05-15] MEDS ORDERED: traMADol 50 MG TABLET PO ONE (10:29)
--- NOTE | 2022-05-15 13:32 | ANESTHESIA POST OP EVALUATION ---
Anesthesia Post Eval - Post Anesthesia Eval Vitals: Last Vital Signs Temp 36.2 C L 05/15/22 10:24 Pulse 58 L 05/15/22 10:24 Resp 16 05/15/22 10:24 BP 128/75 05/15/22 10:24 Pulse Ox 96 05/15/22 10:24 O2 Flow Rate 0 05/15/22 07:54 CV Function Including HR & BP: Stable Pain Control: Satisfactory Nausea & Vomiting: Negative Mental Status: Baseline Respiratory Status: Airway Patent Hydration Status: Satisfactory Anesthesia Complications: None
== END 2022-05-15 07:26 | disposition home or self-care (01) ==
LOC: SDS 07:25
PROVIDERS: ATTEND Obstetrics & Gynecology
PROC: 0UBC7ZX Excision of Cervix, Via Natural or Artificial Opening, Diagnostic (ICD-10-PCS; principal; 2022-05-15 08:30)
DX: D06.9 Carcinoma in situ of cervix, unspecified (principal); E66.01 Morbid (severe) obesity due to excess calories; G47.30 Sleep apnea, unspecified; J45.990 Exercise induced bronchospasm; Z32.02 Encounter for pregnancy test, result negative; Z68.41 Body mass index [BMI] 40.0-44.9, adult; Z87.891 Personal history of nicotine dependence
CPT/HCPCS: 36415; 57520; 81025; 85025; 86850; 86900; 86901; A9270; J2765; J3490; J7120

== ENCOUNTER 2022-07-10 12:19 | Outpatient (CLI) | payer MEDICAID ==
--- NOTE | 2022-07-11 12:58 | Ultrasound Report ---
LIMITED ULTRASOUND OF RIGHT BREAST: 07/10/2022 CLINICAL: Palpable right breast lump. Comparison is made to exams dated: 11/28/2021 ultrasound and 11/28/2021 mammogram - [facility]. Color flow ultrasound of the right breast 11 o'clock region was performed. Saba scale images of the real-time examination were reviewed. There is a 1.8 cm x 1 cm x 1.1 cm oval cyst in the right breast at 11 o'clock posterior depth 14 cm f rom the nipple. This oval cyst is isoechoic but of mixed echogenicity with a well-defined boundary, internal echoes, and posterior acoustic enhancement. This abnormality is decreased in size and less prominent and correlates as previously palpated and with previously described mammography findings. Color flow imaging demonstrates that there is no vascularity present. IMPRESSION: PROBABLY BENIGN The 1.8 cm x 1 cm x 1.1 cm oval cyst in the right breast resembles a complicated cyst or a sebaceous cyst and is probably benign. A follow-up bilateral mammogram and a right ultrasound in 6 months is recommended to demonstrate stab ility versus resolution. Findings and recommendations were conveyed to the patient during today's evaluation. This exam was interpreted at Station ID: [id number]. Electronically Signed By: Jah Brunner M.D. aty/:07/10/2022 12:56:38 Ultrasound BI-RADS: 3 Probably benign BI-RADS CATEGORY: (3) - 3 Mammo and [place] [id number] 6 month follow-up LATERALITY: (B)
== END 2022-07-10 12:20 | disposition home or self-care (01) ==
LOC: DI 12:19
PROVIDERS: ATTEND Obstetrics & Gynecology
DX: N60.01 Solitary cyst of right breast (principal)

== ENCOUNTER 2023-01-07 12:39 | Outpatient (CLI) | payer MEDICAID ==
--- NOTE | 2023-01-08 09:30 | Mammography Report ---
BILATERAL DIGITAL DIAGNOSTIC MAMMOGRAM 3D/2D: 01/07/2023 CLINICAL: Patient returns for a 6 month follow up of the right breast, due for bilateral exam. Comparison is made to exam dated: 11/28/2021 mammogram - [facility]. There are scattered areas of fibroglandular density in both breasts (category b / 25%-50% glandular t issue). There is a mass in the right breast at 11 o'clock posterior depth. This is decreased in size. There is an irregular mass in the left breast at 1 o'clock posterior depth. This correlates as an in cidental finding. No other significant masses or calcifications are seen in either breast. IMPRESSION: INCOMPLETE: NEEDS ADDITIONAL IMAGING EVALUATION The mass in the right breast at 11 o'clock posterior depth is indeterminate. The irregular mass in the left breast at 1 o'clock posterior depth likely represents a cyst or a lymp h node and is indeterminate. There is no mammographic abnormality seen in the left breast to correspond with the pain. A targeted ultrasound of the bilateral breasts is recommended and will be performed immediately follo wing this exam. Based on the Tyrer Cuzick model (a risk assessment model) the patients lifetime risk is 8.8% and her 10 year risk is 1.5%. According to the ACR, ACS, and NCCN guidelines, an annual breast MRI exam long g with mammogram is recommended if the patients lifetime risk is 20% or greater. This exam was interpreted at Station ID: [id number]. NOTE: For mammograms, a report in lay terms will be sent to the patient. Approximately 15% of breast malignancies will not be visualized mammographically. In the management of a palpable breast mass, a negative mammogram must not discourage biopsy of a clinically suspicious lesion. Electronically Signed By: Kelsea Sanon M.D. lk/:01/07/2023 13:56:36 ACR BI-RADS Category 0: Incomplete 3340F PARENCHYMAL PATTERN: (A) - The breast(s) demonstrate(s) scattered fibroglandular densities. BI-RADS CATEGORY: (0) - 0 Ultrasound [id number] Immediate follow-up LATERALITY: (B)
--- NOTE | 2023-01-08 09:31 | Ultrasound Report ---
LIMITED ULTRASOUND OF LEFT BREAST: 01/07/2023 CLINICAL: Intermittent pain in left breast. Comparison is made to exams dated: 01/07/2023 mammogram and 11/28/2021 mammogram - [facility]. Color flow ultrasound of the left breast 2-4 o'clock region was performed on the areas of interest. Saba scale images of the real-time examination were reviewed. There is a benign lymph node in the left breast at 3 o'clock middle depth. This lymph node displays fatty hilum. This correlates as an incidental finding. IMPRESSION: BENIGN There is no sonographic evidence of malignancy. The lymph node in the left breast is benign. There is no mammographic or sonographic abnormality seen in the left breast to correspond with the pa in, however, clinical followup is recommended. Return to annual left mammogram screening schedule is recommended. This exam was interpreted at Station ID: [id number]. Electronically Signed By: Kelsea Sanon M.D. lk/:01/07/2023 13:55:21 Ultrasound BI-RADS: 2 Benign BI-RADS CATEGORY: (2) - 2 RECOMMENDATION: (ANNUAL) - Recommend routine annual screening mammography. [id number] return to screening LATERALITY: (B)
--- NOTE | 2023-01-08 09:31 | Ultrasound Report ---
LIMITED ULTRASOUND OF RIGHT BREAST: 01/07/2023 CLINICAL: 6 month follow-up of cysts. Comparison is made to exams dated: 07/10/2022 ultrasound, 11/28/2021 ultrasound, and 11/28/2021 mammogram - [facility]. Color flow ultrasound of the right breast 11 o'clock region was performed on the areas of interest. Saba scale images of the real-time examination were reviewed. There is a 1.1 cm x 1.2 cm x 1.1 cm oval cyst in the right breast at 11 o'clock posterior depth. Thi s oval cyst displays a well-defined boundary, internal echoes, and posterior acoustic enhancement. T his abnormality is decreased in size and correlates with mammography findings. Color flow imaging de monstrates that there is no vascularity present. IMPRESSION: PROBABLY BENIGN The 1.1 cm x 1.2 cm x 1.1 cm oval cyst in the right breast resembles a complicated cyst and is probab ly benign. A follow-up ultrasound in 12 months is recommended. This exam was interpreted at Station ID: [id number]. Electronically Signed By: Kelsea Sanon M.D. lk/:01/07/2023 14:05:34 Ultrasound BI-RADS: 3 Probably benign BI-RADS CATEGORY: (3) - 3 Ultrasound [id number] 12 month follow-up LATERALITY: (B)
== END 2023-01-07 12:40 | disposition home or self-care (01) ==
LOC: DI 12:39
PROVIDERS: ATTEND Obstetrics & Gynecology
DX: N60.01 Solitary cyst of right breast (principal); N63.21 Unspecified lump in the left breast, upper outer quadrant

== ENCOUNTER 2023-01-21 09:42 | Outpatient (CLI) | payer MEDICAID ==
[2023-01-21 09:55] LABS: BASOPHILS # (AUTO) 0.1 10^3/uL (0.0-0.1); BASOPHILS % (AUTO) 1.1 %; EOSINOPHILS # (AUTO) 0.3 10^3/uL (0.0-0.7); EOSINOPHILS % (AUTO) 2.8 %; HCT - HEMATOCRIT 44.2 % (37.0-47.0); HGB - HEMOGLOBIN 13.7 g/dL (12.0-16.0); LYMPHOCYTES % (AUTO) 19.1 %; MEAN CORPUSCULAR VOLUME 90.2 fL (81.0-99.0); MEAN PLATELET VOLUME 9.3 fL (7.9-10.8); MONOCYTES # (AUTO) 0.7 10^3/uL (0.0-1.0); MONOCYTES % (AUTO) 6.3 %; NEUTROPHILS # (AUTO) 7.4 10^3/uL (1.5-6.6); NEUTROPHILS % (AUTO) 69.8 %; PLT - PLATELET COUNT 365 10^3/uL (130-450); RED CELL DISTRIBUTION WIDTH 12.9 % (12.0-15.0); WHITE BLOOD COUNT 10.5 x10^3/uL (4.8-10.8)
[2023-01-21 10:12] LABS: ALBUMIN 4.2 g/dL (3.2-5.5); ALBUMIN/GLOBULIN RATIO 1.4 (1.0-2.2); ALKALINE PHOSPHATASE 62 IU/L (42-121); ALT ALANINE AMINOTRANSFERASE 16 IU/L (10-60); AST ASPARTATE AMINOTRANSFERASE 16 IU/L (10-42); BILIRUBIN,TOTAL 0.4 mg/dL (0.2-1.0); BUN - BLOOD UREA NITROGEN 19 mg/dL (6-20); CALCIUM 9.6 mg/dL (8.5-10.3); CARBON DIOXIDE - CO2 31 mmol/L (21-32); CHLORIDE 106 mmol/L (101-111); CHOLESTEROL 188 mg/dL; CREATININE 0.7 mg/dL (0.6-1.3); GFR - MDRD 91 (>89); GLUCOSE 89 mg/dL (74-104); HDL CHOLESTEROL 62 mg/dL; LDL CHOLESTEROL,CALCULATED 107 mg/dL; LDL/HDL RATIO 1.7 (<4.4); POTASSIUM 4.4 mmol/L (3.5-4.5); SODIUM 139 mmol/L (135-145); TOTAL PROTEIN 7.3 g/dL (6.4-8.9); TRIGLYCERIDES 96 mg/dL (48-352); VLDL CHOLESTEROL 19 mg/dL
== END 2023-01-21 09:43 | disposition home or self-care (01) ==
LOC: LAB 09:42
PROVIDERS: ATTEND Physician Assistant Medical
DX: Z00.00 Encounter for general adult medical examination without abnormal findings (principal); E03.9 Hypothyroidism, unspecified
CPT/HCPCS: 36415; 80053; 80061; 83721; 84439; 84443; 85025

== ENCOUNTER 2023-05-16 09:48 | Outpatient (CLI) | payer MEDICAID ==
--- NOTE | 2023-05-16 19:05 | XRAY Report ---
PROCEDURE: Lumbar Spine 2 View INDICATIONS: LOW BACK PAIN TECHNIQUE: 2 views of the lumbar spine were acquired. COMPARISON: None. FINDINGS: Bones: 5 [id number] vertebrae are present. There is normal bony alignment. No vertebral body compression fractures. No suspicious bony lesions. Mild lower lumbar facet arthropathy. Soft tissues: Overlying bowel gas pattern is normal. No suspicious soft tissue calcifications. IMPRESSION: Mild lower lumbar facet arthropathy. No acute bony abnormality. Reviewed by: Tyree Matthews MD on 05/16/2023 7:04 PM PST Approved by: Tyree Matthews MD on 05/16/2023 7:04 PM PST Station ID: [id number]
== END 2023-05-16 09:49 | disposition home or self-care (01) ==
LOC: DI 09:48
PROVIDERS: ATTEND Physician Assistant Medical
DX: M47.816 Spondylosis without myelopathy or radiculopathy, lumbar region (principal)

== ENCOUNTER 2023-12-26 07:32 | Outpatient (CLI) | payer MEDICAID ==
[~2023-12-26 07:32] MED LIST changes: -GADOBUTROL 10 MMOL/10 ML SYRINGE ONE; +GADOTERATE MEGLUMINE 10 MMOL/20 ML VIAL ONE; +GADOTERATE MEGLUMINE 5 MMOL/10 ML VIAL ONE
[2023-12-26] MEDS: GADOTERATE MEGLUMINE 10 MMOL/20 ML VIAL IVP ONE (08:44)
--- NOTE | 2023-12-26 13:12 | XRAY Report ---
PROCEDURE: Chest 2V INDICATIONS: ACUTE COVID-19 TECHNIQUE: 2 views of the chest were acquired. COMPARISON: 06/21/2017 FINDINGS: Surgical changes and devices: None. Lungs and pleura: No pleural effusions or pneumothorax. Lungs are clear. Mediastinum: Mediastinal contours appear normal. Heart size is normal. Bones and chest wall: No suspicious bony lesions. Overlying soft tissues appear unremarkable. IMPRESSION: No acute cardiopulmonary process. Reviewed by: Avi Funk MD on 12/26/2023 1:11 PM PDT Approved by: Avi Funk MD on 12/26/2023 1:11 PM PDT Station ID: [id number]
--- NOTE | 2023-12-26 20:04 | MRI Report ---
PROCEDURE: Brain W/WO INDICATIONS: PITUITARY ADENOMA TECHNIQUE: Multiplanar multisequential MR images of the brain were obtained before and after intrave nous contrast administration. COMPARISON: None. FINDINGS: Sella: Hypoenhancing nodule in the gland is now smaller now measuring 2.0 x 2.0 x 4.5 mm, previously 4.5 x 4.7 x 3.3 mm, and appears more cystic but does fill in on delayed imaging. The gland is otherwi se unremarkable. Infundibulum is midline. Cavernous sinuses unremarkable. CSF spaces: Basal cisterns are patent. No extra-axial fluid collections. Ventricles are normal in size and shape. Brain: No midline shift. No intracranial bleeds or masses. No abnormal intracranial enhancement. The brainstem appears normal. Diffusion-weighted images demonstrate no acute infarct. Normal intrav ascular flow voids are present. Skull and face: Calvarial marrow is normal in signal. Orbits appear normal. Sinuses: Sinuses and mastoids appear clear. IMPRESSION: Pituitary adenoma, smaller than the prior exam Reviewed by: Dalton Thakur MD on 12/26/2023 7:02 PM JOHN Approved by: Dalton Thakur MD on 12/26/2023 7:02 PM AKRHETT Station ID: [id number]
== END 2023-12-26 07:33 | disposition home or self-care (01) ==
LOC: DI 07:32
PROVIDERS: ATTEND Physician Assistant Medical
DX: D35.2 Benign neoplasm of pituitary gland (principal); R29.90 Unspecified symptoms and signs involving the nervous system; U07.1 COVID-19
CPT/HCPCS: 70553; 71046; A9575

== ENCOUNTER 2024-01-06 08:33 | Outpatient (CLI) | payer MEDICAID ==
[2024-01-06 08:48] LABS: BASOPHILS # (AUTO) 0.1 10^3/uL (0.0-0.1); EOSINOPHILS # (AUTO) 0.3 10^3/uL (0.0-0.7); EOSINOPHILS % (AUTO) 2.4 %; HCT - HEMATOCRIT 44.5 % (37.0-47.0); LYMPHOCYTES # (AUTO) 2.2 10^3/uL (1.5-3.5); LYMPHOCYTES % (AUTO) 20.3 %; MEAN CORPUSCULAR HEMOGLOBIN 28.3 pg (27.0-31.0); MEAN CORPUSCULAR HGB CONC 31.5 g/dL (32.0-36.0); MEAN CORPUSCULAR VOLUME 89.9 fL (81.0-99.0); MEAN PLATELET VOLUME 8.9 fL (7.9-10.8); MONOCYTES # (AUTO) 0.6 10^3/uL (0.0-1.0); MONOCYTES % (AUTO) 5.8 %; NEUTROPHILS # (AUTO) 7.4 10^3/uL (1.5-6.6); NEUTROPHILS % (AUTO) 69.7 %; PLT - PLATELET COUNT 341 10^3/uL (130-450); RED BLOOD COUNT 4.95 10^6/uL (4.20-5.40); RED CELL DISTRIBUTION WIDTH 13.3 % (12.0-15.0); WHITE BLOOD COUNT 10.6 x10^3/uL (4.8-10.8)
[2024-01-06 09:05] LABS: ALBUMIN 4.1 g/dL (3.2-5.5); ALBUMIN/GLOBULIN RATIO 1.3 (1.0-2.2); ALKALINE PHOSPHATASE 63 IU/L (42-121); ALT ALANINE AMINOTRANSFERASE 17 IU/L (10-60); AST ASPARTATE AMINOTRANSFERASE 16 IU/L (10-42); BILIRUBIN,TOTAL 0.5 mg/dL (0.2-1.0); BUN - BLOOD UREA NITROGEN 24 mg/dL (6-20); CALCIUM 9.7 mg/dL (8.5-10.3); CARBON DIOXIDE - CO2 28 mmol/L (21-32); CHLORIDE 103 mmol/L (101-111); CHOL/HDL RATIO 3.3 (<4.4); CHOLESTEROL 232 mg/dL; CREATININE 0.7 mg/dL (0.6-1.3); GFR - MDRD 90 (>89); GLUCOSE 91 mg/dL (74-104); HDL CHOLESTEROL 70 mg/dL; LDL CHOLESTEROL,CALCULATED 139 mg/dL; POTASSIUM 4.1 mmol/L (3.5-4.5); SODIUM 137 mmol/L (135-145); TOTAL PROTEIN 7.3 g/dL (6.4-8.9); TRIGLYCERIDES 113 mg/dL; VLDL CHOLESTEROL 23 mg/dL
[2024-01-06 09:17] LABS: THYROID STIMULATING HORMONE 31.76 uIU/mL (0.34-5.60)
[2024-01-06 09:23] LABS: PROLACTIN 6.87 ng/mL
== END 2024-01-06 08:34 | disposition home or self-care (01) ==
LOC: LAB 08:33
PROVIDERS: ATTEND Physician Assistant Medical
DX: Z00.00 Encounter for general adult medical examination without abnormal findings (principal); D35.2 Benign neoplasm of pituitary gland; E03.9 Hypothyroidism, unspecified
CPT/HCPCS: 36415; 80053; 80061; 83721; 84146; 84439; 84443; 85025

== ENCOUNTER 2024-01-24 16:46 | Outpatient (CLI) | payer MEDICAID ==
--- NOTE | 2024-01-24 21:04 | Ultrasound Report ---
PROCEDURE: Pelvic w/Transvaginal INDICATIONS: IUD SURVEILLANCE TECHNIQUE: Real-time scanning was performed of the pelvic organs, with image documentation. Additional endovagi nal scanning was necessary due to incomplete visualization of the adnexal and endometrial structures by transabdominal scanning. COMPARISON: None. FINDINGS: Uterus: Uterus is anteverted and normal in size at 7.3 x 3.3 x 4.2 cm. The myometrium is homogeneou s. The endometrium measures 8 mm in combined thickness. IUD appears appropriately positioned within the endometrium. Ovaries: Not visualized due to overlying bowel gas. No adnexal mass. Other: No pathologic free abdominal or pelvic fluid. IMPRESSION: IUD appears appropriately positioned within the endometrium. Reviewed by: vAi Funk MD on 01/24/2024 9:02 PM PDT Approved by: Avi Funk MD on 01/24/2024 9:02 PM PDT Station ID: [id number]
== END 2024-01-24 16:47 | disposition home or self-care (01) ==
LOC: DI 16:46
PROVIDERS: ATTEND Physician Assistant Medical
DX: Z30.431 Encounter for routine checking of intrauterine contraceptive device (principal)